=== PATIENT | female | born 1945 | race Caucasian/White ===

== ENCOUNTER 2020-04-09 07:21 | Outpatient (CLI) | payer MEDICARE, SELFPAY ==
--- NOTE | ~2020-04-09 | XR_ITS ---
EXAMINATION: XR UGI w small bowel DATE: 04/09/2020 09:16 INDICATION: Epigastric abdominal pain. TECHNIQUE: The patient drank thick barium, gas-producing crystals, and thin barium. Fluoroscopy of th e esophagus, stomach, and small bowel was performed. Fluoroscopy exposure time was 1.1 minutes. Radio graphs of the abdomen were obtained. The total number of images was 264. COMPARISON: CT abdomen and pelvis 05/05/2019 FINDINGS: UPPER GASTROINTESTINAL SERIES: There is no mass or stricture of the esophagus. Esophageal motility is normal. There is no hiatal her katie. There was no gastroesophageal reflux with provocative maneuvers. The stomach shows a normal fold ing pattern. Surgical clips in the right upper quadrant are likely from cholecystectomy. SMALL BOWEL SERIES: The small bowel shows a normal folding pattern. Specifically, the terminal ileum is normal. Transit t nikolai to the colon was 30 minutes. IMPRESSION: 1. Normal upper gastrointestinal series. 2. Normal small bowel series. Reviewed, dictated and finalized at location A.
== END 2020-04-09 07:22 | disposition home or self-care (01) ==
PROVIDERS: PCP Internal Medicine; Visit Provider Surgery
DX: R10.13 Epigastric pain (principal)
CPT/HCPCS: 74240; 74248

== ENCOUNTER 2020-04-13 00:45 | Outpatient (CLI) | payer MEDICARE, SELFPAY ==
[2020-04-13 17:53] LABS: SARS-CoV-2 RNA PCR Negative
== END 2020-04-13 00:46 | disposition home or self-care (01) ==
LOC: ANHCOVIDDT 00:45
PROVIDERS: PCP Internal Medicine; Visit Provider Surgery
DX: Z20.828 Contact with and (suspected) exposure to other viral communicable diseases (principal); Z01.812 Encounter for preprocedural laboratory examination
CPT/HCPCS: 87635; C9803; U0003

== ENCOUNTER 2020-04-13 09:20 | Outpatient (CLI) | payer MEDICARE, SELFPAY ==
--- NOTE | ~2020-04-13 | XR_ITS ---
EXAMINATION: XR chest 2V DATE: 04/13/2020 10:13 INDICATION: Hypertension. Preop. TECHNIQUE: Frontal and lateral views of the chest were obtained. COMPARISON: CT abdomen and pelvis 05/05/2019 FINDINGS: There is mild scarring at left lung apex. No pleural effusion or pneumothorax. The heart si ze is normal. There are changes of left mastectomy. Surgical clips in the right upper quadrant are julisa cordoba from cholecystectomy. IMPRESSION: 1. Mild scarring at left lung apex. Reviewed, dictated and finalized at location A.
--- NOTE | 2020-04-13 09:25 | ECG_ITS ---
Measurements Intervals [place] [employer] Rate: 63 P: 54 TX: 182 QRS: -20 QRSD: 124 T: 96 QT: 428 QTc: 438 Interpretive Statements SINUS RHYTHM LEFT BUNDLE BRANCH BLOCK ABNORMAL ECG Electronically Signed On 04-13-2020 10:49:01 CDT by Simon Rain D.O.
[2020-04-13 10:20] LABS: Hematocrit 41.1 % (37.0-47.0); Hemoglobin 13.4 g/dL (12.0-15.0); Mean Corpuscular HGB Conc 32.6 g/dl (32-36); Mean Corpuscular Hemoglobin 29.5 pg (26-34); Mean Corpuscular Volume 90.3 fl (80-100); Mean Platelet Volume 9.5 fl (7.4-10.4); Platelet Count Result 218 k/mm3 (150-375); Red Blood Count 4.55 M/mm3 (4.2-5.4); Red Cell Distribution Width 13.5 % (11.5-14.5); White Blood Count 5.9 K/mm3 (4.5-10.0)
[2020-04-13 10:29] LABS: Alanine Aminotransferase 28 U/L (4-35); Albumin Level 4.6 g/dL (3.5-5.1); Alkaline Phosphatase 60 U/L (38-126); Aspartate Amino Transferase 30 U/L (14-36); Bilirubin,Total 0.7 mg/dL (0.2-1.3); Blood Urea Nitrogen 14 mg/dL (7-17); Carbon Dioxide 30 mmol/L (22-30); Chloride 104 mmol/L (98-107); Estimated Glomerular Filt Rate > 60; Glucose 105 mg/dL (65-105); Lipase 75 U/L (23-300); Potassium 4.9 mmol/L (3.4-5.0); Sodium 139 mmol/L (137-145)
== END 2020-04-13 09:21 | disposition home or self-care (01) ==
PROVIDERS: PCP Internal Medicine; Visit Provider Surgery
DX: K40.90 Unilateral inguinal hernia, without obstruction or gangrene, not specified as recurrent (principal); I44.7 Left bundle-branch block, unspecified
CPT/HCPCS: 36415; 71046; 80053; 83690; 85027; 87635; 93005; C9803; U0003

== ENCOUNTER 2020-04-16 02:15 | Day surgery (SDC) | payer MEDICARE, SELFPAY ==
[2020-04-09 10:10] VITALS: BMI 28.3
[2020-04-16] MEDS: LACTATED RINGERS 1,000 ML 30 ML IV CONT ×2 (08:20→12:59)
--- NOTE | 2020-04-16 08:26 | P.PNAN_ITS ---
Anes - Initial Pre Proc Eval Procedure: Operation Date: 04/16/20 10:00 Proposed Procedures p Open Right Inguinal Hernia Repair With Mesh - Swapnil De Oliveira MD Date/Time: 04/16/20 08:26 Surgeon: Swapnil De Oliveira MD Pre Op Diagnosis: Right Inguinal Hernia Reducible Patient Data Age: 74 Gender: F Height: 1.63 m Weight: 75.4 kg Allergies Allergy/AdvReac Type Severity Reaction Status Date / Time lisinopril Allergy Unknown Cough Verified 04/16/20 08:01 Home Medications Medication Instructions Recorded Confirmed Type aspirin 81 mg tablet,delayed 81 mg PO DAILY 03/14/20 04/16/20 History release carvedilol 3.125 mg tablet 3.125 mg PO Q12H 03/14/20 04/16/20 History losartan 25 mg tablet 25 mg PO DAILY 03/14/20 04/16/20 History atorvastatin 10 mg PO DAILY 04/09/20 04/16/20 History elderberry fruit and flower 1 cap PO DAILY 04/09/20 04/16/20 History inulin [Fiber Gummies] 2 g PO DAILY 04/09/20 04/16/20 History multivitamin 1 tablet PO DAILY 04/09/20 04/16/20 History ECG: Date of Service: 04/13/20 Procedure(s): CA 12 lead EKG Accession Number(s): [id number] cc: ~ Measurements Intervals [place] Rate: 63 P: 54 WA: 182 QRS: -20 QRSD: 124 T: 96 QT: 428 QTc: 438 Interpretive Statements SINUS RHYTHM LEFT BUNDLE BRANCH BLOCK ABNORMAL ECG Electronically Signed On 04-13-2020 10:49:01 CDT by Simon Rain D.O. Dictated By: Simon Rain DO 04/13/20 1021 Patient hx anesthesia problems: none Family hx anesthesia problems: none PMFSH Past Medical History Medical History (Updated 04/16/20 @ 08:28 by Nico Curtis MD) Breast cancer Cancer BREAST CA Dysarthria Heart murmur Hypercholesterolemia Hypertension Neoplasm of skin Peptic ulcer Sleep apnea Surgical History Surgical History History of colonoscopy 2006 History of laparoscopic cholecystectomy 2019 History of left mastectomy 2006 History of tubal ligation Social History Social History Smoking status: Former smoker Smoking end date: 10/26/00 Alcohol intake: current Anes - Eval Final PreProcedure Day of Procedure 04/16/20 08:26 Patient weight: overweight Heart: regular rate and rhythm Lungs: clear to auscultation and normal air movement Airway: Mallampati scale class II Neurological: alert and oriented Last oral intake: >/= 8 hours ASA classification: III Emergent: no Anesthetic plan: proceed Anesthesia type and monitoring: general LMA Informed Consent: The patient's anesthetic plan and its attendant risks and benefits were discussed with the patient/family/POA. Questions were solicited and answers provided to the satisfaction of the patient/family/POA.
--- NOTE | 2020-04-16 08:53 | WPDHPUPDATE1 ---
History and Physical Update Update Date/Time: 04/16/20 08:53 History and Physical has been reviewed, including an updated exam of the patient. There are NO changes in the patient's condition. Risks, benefits, and alternatives have been discussed and questions answered. Patient agrees to proceed with procedure.
[2020-04-16 08:59] VITALS: BP 113/56; PULSE 70; RESP 16; TEMP 36.9; O2SAT 97
[2020-04-16] MEDS: BUPIVACAINE/EPINEPHRINE 0.5% 30 ML VIAL INFILTRATE (09:57)
--- NOTE | 2020-04-16 11:43 | SUR.OPER ---
EBL:10cc
[2020-04-16 11:58] VITALS: BP 119/64; PULSE 71; RESP 16; O2SAT 96
[2020-04-16 12:25] VITALS: BP 133/59; PULSE 75; RESP 16; O2SAT 98
--- NOTE | 2020-04-16 12:27 | PM.PROC ---
Procedure Note - Detailed Date of procedure: 04/16/20 Pre-op diagnosis: Right Inguinal Hernia Reducible Right Inguinal hernia Post-op diagnosis: other (Indirect right inguinal hernia) Procedure performed: Open inguinal hernia repair with mesh Description of procedure: The patient was placed in the supine position on the operating room table. After induction of adequate GIVS anesthesia by [facility] Anesthesia staff, we carefully prepped the entire abdomen and upper perineum with chlorhexidine. Four towels were placed around the right lower quadrant. Following this, a time-out was performed with the surgical team and the patient's surgical procedure and site was confirmed. We then carefully outlined a curvilinear incision in the right groin area and a curvilinear incision was made after introducing a mixture of local anesthetic, using 0.5% Marcaine with epinephrine and 1% Xylocaine plain as both an ilioinguinal nerve block and at the incision site with a 25 gauge needle. Following this, I carefully made the incision, and carried it down through the subcutaneous tissue. Tiffanie's fascia was incised and then we identified the external oblique aponeurosis and the external ring. Following this, the same mixture of local anesthetic was infiltrated underneath the external oblique aponeurosis and this was split in the direction of it's fibers with a #15 blade initially and then using metzenbaum scissors. I then opened the external oblique through the external ring and incised this somewhat posteriorly and superiorly exposing the ilioinguinal nerve. This nerve was carefully preserved laterally and then I carefully and meticulously dissected out the cord structures at the level of the pubic tubercle. In this lady there was an indirect inguinal hernia sac and a lipoma of the cord along wiht the round ligament. I then surrounded these structures at the level of pubic tubercle and placed a Sushila drain around them. I then carefully dissected the hernia sac up and off of the cord tissues, and brought it up and out of the incision. We were able to keep the little nerve away from the structures as we worked placing it just outside the hemostat holding the lateral portion of the split external oblique aponeurosis. We carefully dissected the layers and cremasteric/round ligament tissues off the hernia sac and then eventually opened the hernia sac. Holding this up with 4 hemostats, I carefully dissected it off the Round ligament. Once the hernia sac was carefully dissected back to the level of the internal ring, a suture ligation pursestring suture of 2-0 silk was used to circumvent and close the base of the hernia sac. Following this, a 2 - 0 silk tie was placed just below this, tied tight, and then distally the hernia sac was amputated with Bovie cautery. It was then passed off the field for pathologic evaluation. round ligament was also divided at the level of the internal ring and passed off the field along with what appeared to be lipoma of the cord. Following this, we took care to recreate an appropriate Rt. inguinal canal. This was done by carefully dissecting from the internal ring down to the pubic bone, dissecting away any cremasteric tissue. A running suture of 0 Prolene was placed in the pubic tubercle and run up to the internal ring, approximating the Transversalis fascia to the ilioinguinal ligament. Once this was done, we then opened the rectangular piece of Prolene mesh and it was then cut into a 12 x 5 cm elliptical sheet and I then positioned it nicely over Hesselbach's triangle. As we repositioned this I noticed that there was going to be no good exit site for the ilioinguinal nerve. This was a very small nerve and I felt it would be better to have it cut, and have an area of numbness on the patient's inner thigh rather than to have it constantly irritated by mesh or a suture and cause a neuropathy. Therefore, right near the
[2020-04-16 12:55] VITALS: BP 139/68; PULSE 65; RESP 16
[2020-04-16 13:25] VITALS: BP 152/69; PULSE 67; RESP 16
[2020-04-16 13:55] VITALS: BP 124/65; PULSE 66; RESP 16
== END 2020-04-16 14:10 | disposition home or self-care (01) ==
PROVIDERS: PCP Internal Medicine; Visit Provider Surgery
PROC: (CPT 49505; principal; 2020-04-16 10:00)
DX: K40.90 Unilateral inguinal hernia, without obstruction or gangrene, not specified as recurrent (principal); I10 Essential (primary) hypertension; E78.00 Pure hypercholesterolemia, unspecified; G47.30 Sleep apnea, unspecified; E66.3 Overweight; Z68.28 Body mass index [BMI] 28.0-28.9, adult; Z87.11 Personal history of peptic ulcer disease; Z85.3 Personal history of malignant neoplasm of breast; Z90.12 Acquired absence of left breast and nipple; Z87.891 Personal history of nicotine dependence
CPT/HCPCS: 49505; 88304; A9270; C1781; J0131; J2250; J2405; J2704; J3010; J7120

== ENCOUNTER 2021-01-17 11:42 | Outpatient (CLI) | payer MEDICARE, SELFPAY ==
--- NOTE | ~2021-01-17 | CT_ITS ---
EXAMINATION: CT abdomen pelvis wo con EXAM DATE: 01/17/2021 14:34 INDICATION: Hematuria, abdominal pain RUQ pain with nausea and micro hematuria x1day. Left-sided thu st cancer. TECHNIQUE: Spiral CT of the abdomen and pelvis was performed without contrast. Axial, coronal and s agittal images were reviewed. The dose-length product (DLP) for this examination was 262.15 mGy-cm. The exposure was tailored according to patient size (auto mA exposure control), and iterative recons truction (ASIR) was used as additional dose reduction technique. Comparison is made to prior examinat ion from 05/05/2019. FINDINGS: The liver, spleen, adrenal glands and pancreas are unremarkable. There are cholecystectomy clips. There is no nephrolithiasis or hydronephrosis. The uterus is unremarkable. The bladder i s unremarkable. There is no retroperitoneal or pelvic lymphadenopathy. There is mild scattered art eriosclerotic disease. The appendix is normal. There is mild to moderate sigmoid colonic diverticulosis. There is no adjace nt inflammatory change to suggest diverticulitis. The stomach and small bowel are unremarkable. Ther e is expected amount of colonic stool. No free intraperitoneal gas. The heart is normal in size. Trace pericardial effusion. The lung bases are unremarkable. There are no osteoblastic or osteolyti c lesions identified. Note made of completely atrophic left-sided rectus abdominis muscle, could be from denervation. IMPRESSION: 1. Unremarkable genitourinary system. No acute findings. 2. Mild to moderate sigmoid diverticulosis. Reviewed, dictated and finalized at location A.
[2021-01-17 12:01] LABS: Basophils Absolute Auto 0.08 K/mm3 (0.00-0.10); Eosinophils Percent Auto 2.5 % (1.0-6.0); Hematocrit 41.5 % (35.0-42.0); Hemoglobin 13.6 g/dL (11.7-13.8); Immature Granulocyte Absolute 0.04 K/mm3 (0.00-0.00); Immature Granulocyte Percent A 0.5 % (0.0-0.0); Lymphocytes Percent Auto 28.9 % (18.0-42.0); Mean Corpuscular HGB Conc 32.8 g/dL (32.0-36.0); Mean Corpuscular Volume 88.5 fL (78.0-102.0); Mean Platelet Volume 9.3 fl (9.2-11.8); Monocytes Absolute Auto 0.64 K/mm3 (0.10-0.90); Neutrophils Absolute Auto 4.7 K/mm3 (1.7-7.2); Neutrophils Percent Auto 59.1 % (50.0-70.0); Platelet Count Result 248 K/mm3 (150-420); Red Blood Count 4.69 M/mm3 (4.20-5.40); Red Cell Distribution Width 12.8 % (11.6-14.4)
[2021-01-17 12:02] LABS: Add Urine Microscopic? YES; Appearance Urine Clear (Clear); Bilirubin Urine Negative (Negative); Blood Urine 1+ (Negative); Color Urine Yellow (Yellow); Glucose Urine UA Negative (Negative); Ketones Urine Negative (Negative); Leukocyte Esterase Ur Negative (Negative); Nitrate Urine Negative (Negative); Protein Urine Negative (Negative); Urobilinogen Urine 0.2 mg/dL (0.2-1.0)
[2021-01-17 12:07] LABS: Bacteria Urine Trace /hpf; RBC Urine 0-2 /hpf (0-2); Squamous Epithelial Cell Urine Few /hpf (Few); WBC Urine None seen /hpf (0-3)
[2021-01-17 12:17] LABS: Alanine Aminotransferase 37 U/L (14-59); Albumin Level 4.1 g/dL (3.4-5.0); Alkaline Phosphatase 58 U/L (46-116); Amylase 80 U/L (25-115); Anion Gap 10 mmol/L (8-16); Aspartate Amino Transferase 20 U/L (15-37); Bilirubin,Total 0.5 mg/dL (0.00-1.00); Blood Urea Nitrogen 16 mg/dL (7-18); Calcium 8.9 mg/dL (8.5-10.1); Carbon Dioxide 28 mmol/L (21-32); Chloride 101 mmol/L (98-108); Estimated Glomerular Filt Rate > 60; Glucose 97 mg/dL (70-99); Lipase 143 U/L (73-393); Osmolality Calculated 289 mOsm/kg (285-295); Potassium 4.5 mmol/L (3.5-5.1); Sodium 139 mmol/L (136-145); Total Protein 7.5 g/dL (6.4-8.2)
== END 2021-01-17 11:43 | disposition home or self-care (01) ==
LOC: CHSLAB 11:45
PROVIDERS: PCP Internal Medicine; Visit Provider Internal Medicine
DX: K57.30 Diverticulosis of large intestine without perforation or abscess without bleeding (principal)
CPT/HCPCS: 36415; 74176; 80053; 81001; 82150; 83690; 85025

== ENCOUNTER → 2021-03-30 01:21 | Outpatient (CLI) | payer MEDICARE, SELFPAY ==
[2021-03-30 19:37] LABS: SARS-CoV-2 RNA PCR Negative
== END ==
PROVIDERS: PCP Internal Medicine; Visit Provider Internal Medicine Gastroenterology
DX: Z01.812 Encounter for preprocedural laboratory examination (principal); Z20.822 Contact with and (suspected) exposure to COVID-19
CPT/HCPCS: C9803; U0003; U0005

== ENCOUNTER 2021-04-02 00:26 | Day surgery (SDC) | payer MEDICARE, SELFPAY ==
[2021-03-20 08:59] VITALS: BMI 29.5
[2021-04-02 08:00] VITALS: BP 138/74; PULSE 81; RESP 20; TEMP 36.1; O2SAT 99; BMI 28.8
[2021-04-02] MEDS: LACTATED RINGERS 1,000 ML 150 ML IV CONT (08:26)
--- NOTE | 2021-04-02 08:28 | WPDANESEPPF ---
Anes - Initial Pre Proc Eval Procedure: Operation Date: 04/02/21 09:00 Proposed Procedures p Colonoscopy - Asa Pennington MD Date/Time: 04/02/21 08:28 Surgeon: Asa Pennington MD Pre Op Diagnosis: change in bowel habits Patient Data Age: 75 Gender: F Height: 5 ft 4 in Weight: 76.3 kg Last Vital Signs Temp 96.9 F L 04/02/21 08:00 Pulse 81 04/02/21 08:00 Resp 20 04/02/21 08:00 BP 138/74 04/02/21 08:00 Pulse Ox 99 04/02/21 08:00 Allergies Allergy/AdvReac Type Severity Reaction Status Date / Time lisinopril Allergy Unknown Cough Verified 04/02/21 07:58 Home Medications Medication Instructions Recorded Confirmed Type aspirin 81 mg tablet,delayed 81 mg PO DAILY 03/14/20 04/02/21 History release carvedilol 3.125 mg tablet 3.125 mg PO Q12H 03/14/20 04/02/21 History losartan 25 mg tablet 25 mg PO DAILY 03/14/20 04/02/21 History Fiber Gummies 2 g PO DAILY 04/09/20 04/02/21 History atorvastatin 10 mg PO DAILY 04/09/20 04/02/21 History elderberry fruit and flower 1 cap PO DAILY 04/09/20 04/02/21 History multivitamin 1 tablet PO DAILY 04/09/20 04/02/21 History pantoprazole 40 mg tablet,delayed 40 mg PO QAM 03/04/21 04/02/21 History release psyllium seed (sugar) oral powder 1 tbsp PO ONCE 03/04/21 04/02/21 History sodium,potassium,mag sulfates 17.5 See Rx Instructions PO .COMPLEX 03/14/21 Rx gram-3.13 gram-1.6 gram oral soln #354 ml Patient hx anesthesia problems: none Family hx anesthesia problems: none PMFSH Past Medical History Medical History (Updated 03/05/21 @ 10:49 by Jacki Barajas) Breast cancer Cancer BREAST CA Dysarthria Heart murmur Hypercholesterolemia Hypertension Neoplasm of skin Peptic ulcer Sleep apnea Surgical History Surgical History History of colonoscopy 2007 History of inguinal hernia repair right inguinal hernia, open inguinal hernia repair with mesh 04/16/20 History of laparoscopic cholecystectomy 2019 History of left mastectomy 2006 History of tubal ligation 2006 Family History Family History Father Diabetes mellitus Mother Family history of polycystic kidney disease Sibling Family history of polycystic kidney disease Other Diabetes mellitus Social History Social History Smoking packs per day: 1 Smoking cigarettes per day: 20.0 Years smoked: 40 Smoking pack-years: 40.00 Smoking status: Former smoker Tobacco type: cigarettes Smoking end date: 10/26/00 Alcohol intake: current Drinks per week: 5 Alcohol use details: BEER/WINE Substance use: never Substance use type: does not use Living arrangements: with family Gender identity (if verbalized by the patient): Female Spiritual care concerns: No Anes - Eval Final PreProcedure Day of Procedure 04/02/21 08:28 Patient weight: overweight Heart: regular rate and rhythm Lungs: clear to auscultation Airway: Mallampati scale class II Neurological: alert and oriented Last oral intake: >/= 8 hours ASA classification: III Emergent: no Anesthetic plan: proceed Anesthesia type and monitoring: general GIVS and standard monitoring Informed Consent: The patient's anesthetic plan and its attendant risks and benefits were discussed with the patient/family/POA. Questions were solicited and answers provided to the satisfaction of the patient/family/POA.
--- NOTE | 2021-04-02 08:50 | WPDGICN ---
Assessment and Plan Assessment and plan (1) Encounter for diagnostic colonoscopy due to change in bowel habits: Code(s): R19.4 - Change in bowel habit Status: Acute Assessment and Plan: Patient has had recent alteration in her bowel habits with narrow ribbon like stools. She has associated abdominal pain. Agree with Metamucil. Because of this discomfort a colonoscopy will be performed to evaluate for abnormality. She does have a history of hernia repair. She is status post recent cholecystectomy. Further recommendations may be given after endoscopy. (2) Abnormal stools: Code(s): R19.5 - Other fecal abnormalities Status: Acute GI Consult Note Consult date/time: 04/02/21 08:50 HPI: Joanna Freitas is a 75 year old female Presents for colonoscopy. Patient has a history of GE reflux disease. Last colonoscopy was 2013 for screening was essentially unremarkable. Patient is status post cholecystectomy in 2019. In 2020 underwent hernia repair with mesh she currently is followed by Dr. De Oliveira. Has recently noticed a change in bowel habits with narrowed stools abdominal discomfort pain and cramping relieved with bowel movements. She is referred for colonoscopy because of alteration in bowel habits. She has had some improvement bowel habits on taking Metamucil daily. She denies any bleeding or weight loss. Her family history is noncontributory. She has been treated for acid reflux as well recently. Review of Systems Review of Systems: All systems reviewed & are unremarkable except as noted in HPI and below PMFSH Past Medical History Medical History (Updated 04/02/21 @ 08:53 by Asa Pennington MD) Breast cancer Cancer BREAST CA Dysarthria Heart murmur Hypercholesterolemia Hypertension Neoplasm of skin Peptic ulcer Sleep apnea Surgical History Surgical History History of colonoscopy 2007 History of inguinal hernia repair right inguinal hernia, open inguinal hernia repair with mesh 04/16/20 History of laparoscopic cholecystectomy 2019 History of left mastectomy 2006 History of tubal ligation 2006 Family History Family History Father Diabetes mellitus Mother Family history of polycystic kidney disease Sibling Family history of polycystic kidney disease Other Diabetes mellitus Social History Social History Smoking packs per day: 1 Smoking cigarettes per day: 20.0 Years smoked: 40 Smoking pack-years: 40.00 Smoking status: Former smoker Tobacco type: cigarettes Smoking end date: 10/26/00 Alcohol intake: current Drinks per week: 5 Alcohol use details: BEER/WINE Substance use: never Substance use type: does not use Living arrangements: with family Gender identity (if verbalized by the patient): Female Spiritual care concerns: No Meds Home Medications and Allergies Home Medications Medication Instructions Recorded Confirmed Type aspirin 81 mg tablet,delayed 81 mg PO DAILY 03/14/20 04/02/21 History release carvedilol 3.125 mg tablet 3.125 mg PO Q12H 03/14/20 04/02/21 History losartan 25 mg tablet 25 mg PO DAILY 03/14/20 04/02/21 History Fiber Gummies 2 g PO DAILY 04/09/20 04/02/21 History atorvastatin 10 mg PO DAILY 04/09/20 04/02/21 History elderberry fruit and flower 1 cap PO DAILY 04/09/20 04/02/21 History multivitamin 1 tablet PO DAILY 04/09/20 04/02/21 History pantoprazole 40 mg tablet,delayed 40 mg PO QAM 03/04/21 04/02/21 History release psyllium seed (sugar) oral powder 1 tbsp PO ONCE 03/04/21 04/02/21 History sodium,potassium,mag sulfates 17.5 See Rx Instructions PO .COMPLEX 03/14/21 Rx gram-3.13 gram-1.6 gram oral soln #354 ml Allergies Allergy/AdvReac Type Severity Reaction Status Date / Time lisinopril Allergy Unknown Cough Verif
[2021-04-02 09:25] VITALS: BP 110/50; PULSE 86; RESP 15; O2SAT 94
[2021-04-02 09:35] VITALS: BP 108/48; PULSE 78; RESP 22; O2SAT 97
[2021-04-02 09:45] VITALS: BP 128/70; PULSE 80; RESP 20; O2SAT 98
== END 2021-04-02 09:53 | disposition home or self-care (01) ==
PROVIDERS: PCP Internal Medicine; Visit Provider Internal Medicine Gastroenterology
PROC: 0DJD8ZZ Inspection of Lower Intestinal Tract, Via Natural or Artificial Opening Endoscopic (ICD-10-PCS; CPT 45378; principal; 2021-04-02 09:00)
DX: R19.4 Change in bowel habit (principal); R19.5 Other fecal abnormalities; K64.8 Other hemorrhoids; K57.30 Diverticulosis of large intestine without perforation or abscess without bleeding; Z85.3 Personal history of malignant neoplasm of breast; R47.1 Dysarthria and anarthria; R01.1 Cardiac murmur, unspecified; E78.01 Familial hypercholesterolemia; I10 Essential (primary) hypertension; Z86.03 Personal history of neoplasm of uncertain behavior; K27.9 Peptic ulcer, site unspecified, unspecified as acute or chronic, without hemorrhage or perforation; G47.30 Sleep apnea, unspecified; Z87.891 Personal history of nicotine dependence; Z79.82 Long term (current) use of aspirin
CPT/HCPCS: 45378; J2704; J7120

== ENCOUNTER 2021-06-25 12:05 | Outpatient (CLI) | payer MEDICARE, SELFPAY ==
[2021-06-25 13:26] LABS: SARS-CoV-2 RNA PCR Negative (Negative)
== END 2021-06-25 12:06 | disposition home or self-care (01) ==
LOC: CHSLAB 12:10
PROVIDERS: PCP Internal Medicine; Visit Provider Internal Medicine
DX: Z20.822 Contact with and (suspected) exposure to COVID-19 (principal)
CPT/HCPCS: C9803; U0003; U0005

== ENCOUNTER 2021-06-27 14:00 | Outpatient (CLI) | payer MEDICARE, SELFPAY ==
--- NOTE | ~2021-06-27 | CT_ITS ---
EXAMINATION: CT brain wo con DATE: 06/27/2021 14:22 INDICATION: Headache with vertigo TECHNIQUE: Computed tomography (CT) of the head was performed without intravenous contrast. Sagittal and coronal reconstructions were performed. The mA was adjusted according to patient size. Iterative reconstruction technique was employed. The dose-length product was 605.33 mGy-cm. COMPARISON: None FINDINGS: No acute intracranial hemorrhage, acute infarction or abnormal extra axial fluid collection.. There i s minimal scattered white matter hypoattenuation consistent with chronic small vessel ischemic diseas e. Ventricles are normal and symmetric. No mass/mass effect. Changes of bilateral intraocular lens r eplacement. The orbits, paranasal sinuses and mastoid air cells are normal. IMPRESSION: 1. No acute intracranial process. 2. Minimal scattered white matter hypoattenuation consistent with chronic small vessel ischemic disea se. Reviewed, dictated and finalized at location A. IMPRESSION: 1. No acute intracranial process. 2. Minimal scattered white matter hypoattenuation consistent with chronic small vessel ischemic disease.
== END 2021-06-27 14:01 | disposition home or self-care (01) ==
LOC: CHSIMG 14:02
PROVIDERS: PCP Internal Medicine; Visit Provider Internal Medicine
DX: R51.9 Headache, unspecified (principal); R42 Dizziness and giddiness
CPT/HCPCS: 70450

== ENCOUNTER 2021-06-28 14:36 | Outpatient (CLI) | payer MEDICARE, SELFPAY ==
[2021-06-28 14:48] LABS: Basophils Absolute Auto 0.07 K/mm3 (0.00-0.10); Basophils Percent Auto 0.8 % (0.0-1.0); Eosinophils Absolute Auto 0.13 K/mm3 (0.02-0.50); Eosinophils Percent Auto 1.5 % (1.0-6.0); Hematocrit 41.7 % (35.0-42.0); Hemoglobin 13.4 g/dL (11.7-13.8); Immature Granulocyte Absolute 0.04 K/mm3 (0.00-0.00); Immature Granulocyte Percent A 0.5 % (0.0-0.0); Lymphocytes Absolute Auto 2.44 K/mm3 (1.10-4.50); Lymphocytes Percent Auto 28.1 % (18.0-42.0); Mean Corpuscular HGB Conc 32.1 g/dL (32.0-36.0); Mean Corpuscular Volume 90.3 fL (78.0-102.0); Mean Platelet Volume 9.3 fl (9.2-11.8); Monocytes Absolute Auto 0.65 K/mm3 (0.10-0.90); Monocytes Percent Auto 7.5 % (2.0-11.0); Neutrophils Absolute Auto 5.4 K/mm3 (1.7-7.2); Neutrophils Percent Auto 61.6 % (50.0-70.0); Platelet Count Result 249 K/mm3 (150-420); Red Blood Count 4.62 M/mm3 (4.20-5.40); Red Cell Distribution Width 13.6 % (11.6-14.4); White Blood Count 8.7 K/mm3 (4.8-10.8)
[2021-06-28 15:02] LABS: Alanine Aminotransferase 39 U/L (14-59); Albumin Level 4.2 g/dL (3.4-5.0); Alkaline Phosphatase 55 U/L (46-116); Anion Gap 11 mmol/L (8-16); Aspartate Amino Transferase 15 U/L (15-37); Bilirubin,Total 0.3 mg/dL (0.00-1.00); Blood Urea Nitrogen 15 mg/dL (7-18); Calcium 8.7 mg/dL (8.5-10.1); Carbon Dioxide 27 mmol/L (21-32); Chloride 105 mmol/L (98-108); Estimated Glomerular Filt Rate > 60; Glucose 127 mg/dL (70-99); Osmolality Calculated 298 mOsm/kg (285-295); Potassium 3.9 mmol/L (3.5-5.1); Sodium 143 mmol/L (136-145); Total Protein 7.3 g/dL (6.4-8.2)
[2021-06-28 15:13] LABS: D Dimer 0.36 mg/L (0.19-0.50)
[2021-06-28 15:14] LABS: CRP < 0.2 mg/dL (0.0-0.9)
== END 2021-06-28 14:37 | disposition home or self-care (01) ==
LOC: CHSLAB 14:37
PROVIDERS: PCP Internal Medicine; Visit Provider Nurse Practitioner Family
DX: I34.0 Nonrheumatic mitral (valve) insufficiency (principal); I10 Essential (primary) hypertension
CPT/HCPCS: 36415; 80053; 85025; 85380; 86140

== ENCOUNTER 2021-10-28 09:07 | Outpatient (CLI) | payer MEDICARE, SELFPAY ==
[2021-10-28 11:48] LABS: Influenza A QL RT-PCR Negative (Negative); Influenza B QL RT-PCR Negative (Negative); SARS-CoV-2 RNA PCR Positive (Negative)
== END 2021-10-28 09:08 | disposition home or self-care (01) ==
LOC: CHSLAB 09:11
PROVIDERS: PCP Internal Medicine; Visit Provider Internal Medicine
DX: U07.1 COVID-19 (principal); J06.9 Acute upper respiratory infection, unspecified
CPT/HCPCS: 87502; C9803; U0003; U0005

== ENCOUNTER 2022-01-20 07:42 | Outpatient (RCR) | payer MEDICARE, SELFPAY ==
--- NOTE | 2022-01-20 08:08 | PTOPEVAL ---
Thank you for referring Joanna Freitas to [facility].? The patient is scheduled to be seen for therapy? ____x/week for ___ weeks. Please review, sign, date and return this plan of care TESSA. I agree with and certify that the following plan of care is medically necessary. 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 [place] Respiratory History Hx Sleep Apnea Yes: DOES NOT USE CPAP Gastrointestinal History Hx Cholecystectomy Yes: 2018 Hx Diverticulitis Yes Hx Diverticulosis Yes Hx Gastroesophageal Reflux Disease Yes Hx Hernia Yes: R INGUINAL HERNIA REPAIR 03/2020 Hx Irritable Bowel Yes: CONSTIPATION AND DIARRHEA Hx Ulcer Yes: PEPTIC ULCER Hx Other Gastrointestinal Disorders Yes: TRANSLAP FOR BREAST RECONSTRUCTION Genitourinary History Hx Genitourinary Disorders No Significant History Musculoskeletal History Hx Musculoskeletal Disorders No Significant History Hematological History Hx Hematological Disorders No Significant History Endocrine History Hx Endocrine Disorders No Significant History HEENT History Hx Cataracts Yes: BILATERAL SURGERY WITH LENS IMPLANTS Integumentary History Hx Excision Skin Lesion Yes: NON-MELANOMA Reproductive History Hx Post Menopausal Yes Hx Tubal Ligation Yes Psychosocial History Hx Psychiatric Disorders No Significant History Pain History History of Any Previous or Ongoing No Significant History Instance of Pain Anesthesia History Hx Anesthesia Reactions No Significant History Other History Hx Cancer Yes: BREAST CA-2006 Hx Chemotherapy Yes: 2006 Hx Radiation Therapy Yes: 2006 Evaluation Information Problem Diagnosis BPPV, other gait abnormality Onset 01/08/22 Additional Evaluation Detail DHI = 64% functionally declined Subjective Information
== END 2022-03-03 23:59 | disposition home or self-care (01) ==
LOC: CHSPT 07:42
PROVIDERS: Visit Provider Otolaryngology
DX: H91.10 Presbycusis, unspecified ear (principal); R26.89 Other abnormalities of gait and mobility
CPT/HCPCS: 97014; 97110; 97112; 97140; 97162; G0283

== ENCOUNTER 2022-03-05 08:05 | Outpatient (CLI) | payer MEDICARE, SELFPAY | END 2022-03-05 08:06 | disposition home or self-care (01) | LOC: CHSAUDIO 08:09 | PROVIDERS: PCP Internal Medicine; Visit Provider Otolaryngology | DX: H93.13 Tinnitus, bilateral (principal) | CPT/HCPCS: 92557; 92567 ==

== ENCOUNTER 2023-07-23 14:55 | Outpatient (CLI) | payer MEDICARE, SELFPAY ==
--- NOTE | ~2023-07-23 | XR_ITS ---
XR knee LT min 4V 07/23/2023 15:16 Indication: Left knee pain Procedure: 4 views left knee Comparison: 08/03/2017 Findings: There is mild tricompartment osteoarthritis of the left knee. No significant joint effusion . No foreign bodies. Impression: 1: Mild tricompartment osteoarthritis of the left knee. Reviewed, dictated and finalized at location L. Impression: 1: Mild tricompartment osteoarthritis of the left knee.
== END 2023-07-23 14:56 | disposition home or self-care (01) ==
LOC: CHSIMG 14:59
PROVIDERS: PCP Internal Medicine; Visit Provider Internal Medicine
DX: M17.12 Unilateral primary osteoarthritis, left knee (principal); M25.562 Pain in left knee
CPT/HCPCS: 73564

== ENCOUNTER 2023-07-25 10:30 | Outpatient (CLI) | payer MEDICARE, SELFPAY ==
--- NOTE | ~2023-07-25 | MR_ITS ---
EXAMINATION: MR knee LT wo con DATE: 07/25/2023 12:25 INDICATION: LEFT KNEE PAIN TECHNIQUE: Magnetic resonance imaging (MRI) of the left knee was performed without intravenous contra st. Sequences included axial PD-weighted FS FSE, coronal PD-weighted FSE and PD-weighted FS FSE, sagi ttal PD-weighted FSE, and sagittal T2-weighted FS FSE. COMPARISON: Left knee x-ray 07/15/2023 FINDINGS: Medial compartment: Degenerative signal change in the body of the medial meniscus. Apical blunting of the meniscal body. Moderate diffuse cartilage thinning. Mild osteophytosis. Lateral compartment: Degenerative signal change. Apical blunting of the meniscal body. Mild diffuse cartilage thinning. Mi ld osteophytosis. Patellofemoral compartment: Cartilage thinning over the median ridge and lateral facet. Partial thickness cartilage fissuring wit h cartilage fraying over the median ridge. Ligaments and tendons: The ACL, PCL, MCL, and LCL are intact. Remaining flexor and extensor tendons are intact. Fluid: Moderate volume joint fluid. Osseous/other: No suspicious focal or diffuse marrow signal. IMPRESSION: Apical tears of the body of the medial and lateral menisci. Tricompartment osteoarthritic arthritis. Moderate left knee joint effusion. Reviewed, dictated and finalized at location K.
== END 2023-07-25 10:31 | disposition home or self-care (01) ==
LOC: CHSIMG 10:31
PROVIDERS: PCP Internal Medicine; Visit Provider Internal Medicine
DX: M25.562 Pain in left knee (principal); S83.282A Other tear of lateral meniscus, current injury, left knee, initial encounter; S83.242A Other tear of medial meniscus, current injury, left knee, initial encounter; M17.12 Unilateral primary osteoarthritis, left knee; M25.462 Effusion, left knee
CPT/HCPCS: 73721

== ENCOUNTER 2024-07-19 09:12 | Outpatient (CLI) | payer MEDICARE, SELFPAY ==
--- NOTE | ~2024-07-19 | XR_ITS ---
XR knee LT min 4V Ordering provider: Dario Izaguirre MD History: . Left knee pain,MEDIAL AND INFERIOR . Comparison: July 23, 2023 FINDINGS: BONES: No acute fracture or dislocation. JOINT SPACES: Normal. SOFT TISSUES: Normal. IMPRESSION: No acute osseous abnormality left knee. Reviewed, dictated and finalized at location A.
== END 2024-07-19 09:13 | disposition home or self-care (01) ==
PROVIDERS: PCP Internal Medicine; Visit Provider Orthopaedic Surgery
DX: M25.562 Pain in left knee (principal)
CPT/HCPCS: 73564

== ENCOUNTER 2024-11-08 09:32 | Outpatient (CLI) | payer MEDICARE, SELFPAY ==
--- NOTE | ~2024-11-08 | XR_ITS ---
XR knee LT min 4V Ordering provider: Dario Izaguirre MD History: . LT knee pain . Comparison: None. FINDINGS: BONES: No acute fracture or dislocation. JOINT SPACES: Normal. SOFT TISSUES: Normal. IMPRESSION: No acute osseous abnormality left knee. Reviewed, dictated and finalized at location A. [employer]
== END 2024-11-08 09:33 | disposition home or self-care (01) ==
PROVIDERS: PCP Internal Medicine; Visit Provider Orthopaedic Surgery
DX: M25.562 Pain in left knee (principal)
CPT/HCPCS: 73564

== ENCOUNTER 2024-12-09 02:17 | Day surgery (SDC) | payer MEDICARE, SELFPAY ==
--- NOTE | 2024-12-02 08:51 | PC.NURSE ---
Report to the Outpatient Waiting Room, entrance under the green pavilion located off [facility], at time _6:30 AM on date _12/09/24 . Planned Procedure Time: _8:30 AM .? Time changes happen often and if your time is changed the preop area will call you the afternoon before. - You and your visitor will be asked to self-screen and do not enter if you have any COVID symptoms. Please call surgeon if you need to reschedule. - A mask is optional within the hospital at this time. Patients may have clear liquids (water, carbonated beverages, clear teas, apple juice) until 3 hours prior to surgery( 5:30 AM) with a maximum of 20 ounces. - No food from midnight until time of surgery and no smoking, or chewing tobacco (or any form of nicotine). No chewing gum, candy or mints. Take only the following medications with a SIP of water on the morning of surgery: __METOPROLOL DO NOT STOP ANY OF YOUR OTHER PRESCRIPTION MEDICATIONS PRIOR TO SURGERY EXCEPT THE FOLLOWING Hold all vitamins and supplements for 3 days per anesthesiologist. Medications to discontinue per physician _PT STATES HOLD__ASPIRIN PER DR MCKINLEY___7 DAYS PRE OP LAST DOSE 12/01/24 Please no make-up, nail danish, hairspray, perfume, deodorant, or body powder the day of surgery.? No jewelry (including any body piercings) or valuables the day of surgery, leave them at home.? Please take a shower or bath the night before, or the morning of, surgery with an antibacterial soap.? Wear comfortable, loose fitting clothing.? Children are encouraged to wear pajamas. - Jewelry must be removed prior to entering the operating room.? Rings and piercings that are not removed may be cut off. - The hospital will not accept responsibility for valuables.? - Please leave all valuables, including medications, at home the day of surgery. If you are going home after surgery, a licensed bicycle taxi driver must drive you home.? - NO public transportation without another adult if you receive anesthesia. - We recommend that an adult stay with you for 24 hours following discharge. - We also recommend that you do not drive, make important decision, drink alcoholic beverages, or take any drugs that were not prescribed by your health care provider for at least 24 hours after your discharge time. Follow any additional instructions given to you from your surgeon. Telephone instructions given to _PATIENT and asked if any additional questions and then verbalized understanding. Patient advised to call surgeon office or pre surgery nurse liaison [phone] if any additional questions.
[2024-12-02 09:23] VITALS: BMI 31.0
[2024-12-09] VITALS (12 sets, daily range): BP systolic 110–129; BP diastolic 43–89; PULSE 72–89; RESP 10–20; TEMP 36.5–36.9; O2SAT 94–100
--- OUTSIDE RECORDS SUMMARY | 2024-12-09 02:22 | XMS_ITS | Patient Health Summary ---
Author Organization [facility] Address [address] [place] [address] Care Team Providers Care Yard Switcher Name Role Phone Von Silverio MD Primary Care Provider [phone] Note from [facility],non-owned Affiliates and Associated Physician Practices is amultiple site organization consisting of ambulatory clinics and hospital sitesin [place] and [place]. This disclosure is being madepursuant to the Care Everywhere program and may not contain all information available regarding this patient. Last updated 18.[facility] Social History Tobacco Use Types Packs/Day Years Used Date Smoking Tobacco: Former Smokeless Tobacco: Never Alcohol Use Standard Drinks/Week Comments Yes 0 (1 standard drink = 0.6 oz pur e alcohol) Sex and Gender Information Value Date Recorded Sex Assigned at Not on file Gender Identity Not on file Sexual Orientation Not on file Last Filed Vital Signs Vital Sign Reading Time Taken Comments Blood Pressure 139/75 12/12/2015 12:57 PM COLD PRESS OPERATOR Pulse 90 12/12/2015 12:57 PM COLD PRESS OPERATOR Temperature 36.3 C (97.4 F) 12/12/2015 12:57 PM COLD PRESS OPERATOR Respiratory Rate - - Oxygen Saturation 98% 12/12/2015 12: 57 PM COLD PRESS OPERATOR Inhaled Oxygen Concentration - - Weight 71.1 kg (156 lb 12.8 oz) 016 12:57 PM COLD PRESS OPERATOR Height 162.6 cm (5' 4 ) 12/12/2015 12:5 7 PM COLD PRESS OPERATOR Body Mass Index 26.91 12/12/2015 12:57 PM COLD PRESS OPERATOR Procedures * CT KIDNEYS WWO CONTRAST(Performed 12/12/2015) * URINALYSIS AUTO - POINT OF CARE (AMB) [facility](Performed 12/12/2015) * CREATININE BLOOD - POCT (IP) [facility](Performed 12/12/2015) * CYTOLOGY NON-MACHINIST HELPER MARINE PANEL ([facility])(Performed 11/12/2015) * CYTOLOGY NON-MACHINIST HELPER MARINE PANEL ([facility])(Performed 11/12/2015) * CYTOLOGY NON-MACHINIST HELPER MARINE PANEL ([facility])(Performed 11/12/2015) * URINALYSIS - POINT OF CARE (AMB) [facility](Performed 11/12/2015) Results * CT KIDNEYS WWO CONTRAST (12/12/2015 10:58 AM COLD PRESS OPERATOR) Anatomical Region Laterality Modality Other Impressions 12/14/2015 11:51 AM COLD PRESS OPERATOR IMPRESSION: 1. 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 2. No solid renal lesion. Report dictated by Ania Willis I, Dr. KATE REDMAN M.D. have personally reviewed and interpreted this examination/study. This report was electronically signed by KATE REDMAN M.D. on 12/14/2015 11:51 AM . Narrative 12/14/2015 11:51 AM COLD PRESS OPERATOR EXAMINATION: Computed tomography (CT) of the abdomen without and with contrast HISTORY: 70-year-old female with a right kidney cyst TECHNIQUE: CT of the abdomen was performed prior to and after the uneventful administration of 100 mL of Omnipaque 350 intravenous contrast according to a renal protocol. COMPARISON: Comparison is made with an outside institution CT study of the abdomen and pelvis dated 10/04/2015. FINDINGS: The visualized lung bases are clear. The heart size is normal without pericardial effusion. Postoperative changes of left mastectomy are partially imaged. The liver enhances homogenously. No focal intrahepatic lesions are seen. The gallbladder is normal without evidence of wall thickening, pericholecystic fluid, or gallstones. The intrahepatic and extrahepatic bile ducts are nondilated. The spleen enhances homogenously without focal lesions. The pancreas and adrenal glands are normal. There is a a hypoattenuating lesion in the inferior pole of the right kidney measuring 9 mm AP by 7 mm TV by 7 mm CC (image 63, series 7 and image 57, series 10). 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 Several additional punctate hypoattenuating foci in the bilateral kidneys are too small characterize characterize, but likely represent cysts. The kidneys otherwise enhance symmetrically. No renal or proximal ureteral calculi are seen. There is no evidence of hydronephrosis. The esophagus and stomach appear normal. The visualized portions of the small bowel and large bowel are normal in caliber without evidence of wall thickening or obstruction. No free air or free fluid is identified within the abdomen. There is no abdominal lymphadenopathy. The enhanced abdominal aorta is normal in course and caliber. The remaining enhanced vascular structures are normal. Single and patent renal arteries are identified bilaterally. Single patent renal veins are noted bilaterally. Bone windows demonstrate no suspicious lytic or blastic lesions. The visible osseous structures are intact. Procedure Note Kate Redman MD - 01/23/2018 EXAMINATION: Computed tomography (CT) of the abdomen without and withcontrast HISTORY: 70-year-old female with a right kidney cyst TECHNIQUE: CT of the abdomen was performed prior to and after theuneventful administration of 100 mL of Omnipaque 350 intravenous contrastaccording to a renal protocol. COMPARISON: Comparison is made with an outside institution CT study of theabdomen and pelvis dated 10/04/2015. FINDINGS: The visualized lung bases are clear. The heart size is normal withoutpericardial effusion. Postoperative changes of left mastectomy arepartially imaged. The liver enhances homogenously. No focal intrahepatic lesions are seen.The gallbladder is normal without evidence of wall thickening,pericholecystic fluid, or gallstones. The intrahepatic and extrahepaticbile ducts are nondilated. The spleen enhances homogenously without focal lesions. The pancreas and adrenal glands arenormal. There is a a hypoattenuating lesion in the inferior pole of the rightkidney measuring 9 mm AP by 7 mm TV by 7 mm CC (image 63, series 7 andimage 57, series 10). This lesion does not demonstrate definiteenhancement postcontrast administration and contains hyperattenuating foci in the posterior aspect of the noncontrastseries and is most consistent with a milk of calcium cyst or cyst withthin posterior wall calcification . Several additional punctatehypoattenuating foci in the bilateral kidneys are too small characterize characterize, but likely represent cysts. Thekidneys otherwise enhance symmetrically. No renal or proximal ureteralcalculi are seen. There is no evidence of hydronephrosis. The esophagus and stomach appear normal. The visualized portions of thesmall bowel and large bowel are normal in caliber without evidence of wallthickening or obstruction. No free air or free fluid is identified withinthe abdomen. There is no abdominal lymphadenopathy. The enhanced abdominal aorta is normal in course and caliber. Theremaining enhanced vascular structures are normal. Single and patent renalarteries are identified bilaterally. Single patent renal veins are notedbilaterally. Bone windows demonstrate no suspicious lytic or blastic lesions. Thevisible osseous structures are intact. IMPRESSION IMPRESSION: 1. A 9 mm hypoattenuating lesion in the inferior pole of the right kidneywithout definite enhancement and calcifications in the posterior aspect ismost consistent with a milk of calcium cyst or a cyst with linearposterior wall calcification. 2. No solid renal lesion. Report dictated by Dr. KATE Townsend M.D., M.D. have personally reviewed and interpreted thisexamination/study. This report was electronically signed by KATE REDMAN M.D. on 12/14/201511:51 AM . Nilton Melissa Smith MD CT ORDERABLES * URINALYSIS AUTO - POINT OF CARE (AMB) [facility] (12/12/2015) Glucose UA neg [facility] Bilirubin UA POCT neg [facility] Ketones UA POCT 0.5 mmo1/L [facility] Specific Emmett UA 1.005 [facility] Blood Urine POCT 10 Gaurav/uL [facility] pH UA 5.0 [facility] Protein UA 0.15 g/L [facility] Urobilinogen UA 3.5 umo1/L [facility] Nitrite UA neg [facility] WBC UA neg [facility] Urine specimen (specimen) 12/12/2015 Nilton A Smith MD LAB - POINT OF CARE ORDERABLES [facility] * CREATININE BLOOD - POCT (IP) [facility] (12/12/2015) Creatinine POCT 0.94 0.3 - 1.3 mg/dL [facility] eGFR POCT 60 60 ml/min [facility] 12/12/2015 Nilton Melissa Smith MD LAB - POINT OF CARE ORDERABLES [facility] * CYTOLOGY NON-MACHINIST HELPER MARINE PANEL ([facility]) (11/12/2015 11:21 AM COLD PRESS OPERATOR) Only the most recent of3 resultswithin the time period is included. Cytology Non-Air Launch Weapons Technician Reference: [id number] Specimen: URINE, CLEAN CATCH Clinical History: None Given Gross Description: 80ml clear fluid Preparation Method: 1 Thin Prep Pap stained slide SPECIMEN ADEQUACY: - SATISFACTORY FOR EVALUATION FINAL DIAGNOSIS: URINE, VOIDED, CLEAN CATCH - NO CYTOLOGIC ATYPIA MICROSCOPIC DESCRIPTION: Material reviewed: 1 ThinPrep pap stained slide Review of slide prepared reveals neutrophils, lymphocytes, benign squamous cells and urothelial cells. No atypical cells are seen. COMMENT(S): This case has been personally reviewed and interpreted by the attending (teaching) pathologist. Initial Evaluation performed by Yesy PENA(ASCP). Electronically signed 11/14/2015 Final Diagnosis performed by Oseas Stockton MD. Electronically signed 11/15/2015 [facility] ([facility]) 11/12/2015 11:2 1 AM COLD PRESS OPERATOR 11/13/2015 3:10 PM COLD PRESS OPERATOR Nilton Melissa Smith MD LAB - PATHOLOGY/CYT OLOGY ORDERABLES [facility] ([facility]) * (ABNORMAL) URINALYSIS - POINT OF CARE (AMB) [facility] (11/12/2015) Glucose UA neg [facility] Bilirubin UA POCT neg [facility] Ketones UA POCT neg [facility] Specific Emmett UA 1.030 [facility] Blood Urine POCT 25(A) [facility] pH UA 5.5 [facility] Protein UA neg [facility] Urobilinogen UA 3.5 [facility] Nitrite UA neg [facility] WBC UA neg [facility] Urine specimen (specimen) 11/12/2015 Nilton Melissa Smith MD LAB - POINT OF CARE ORDERABLES [facility] Care Teams Yard Switcher Relationship Specialty Start Date End Date Von Silverio MD [address] [place], [place] [id number] PCP - General 11/12/15
--- OUTSIDE RECORDS SUMMARY | 2024-12-09 02:22 | XMS_ITS | Encounter Summary ---
Author Organization [facility] Address [address] [place] [address] Phone Care Team Providers Care Digital Strategy Specialist Name Role Phone Von Silverio MD Primary Care Provider [phone] Fanny Santizo CYBER SECURITY MANAGER Unavailable [phone] Encounter Details Date Type Department Care Team (Latest Contact Info) Description 12/27/2021 Orders Only [facility] Scanning, Provider Social History Tobacco Use Types Packs/Day Years Used Date Smoking Tobacco: Former Smokeless Tobacco: Never Comments No Sex and Gender Information Value Date Recorded Sex Assigned at Not on file Legal Sex Female 7:12 AM MANUFACTURING LEAD Gender Identity Not on file Sexual Orientation Not on file Occupation Industry Job Start Date Job End Date Not on file Not on file Not on file Not on file documented as of this encounter Plan of Treatment Not on file documented as of this encounter Procedures Procedure Name Priority Date/Time Associated Diagnosis Comments SCAN - LABS 12/27/2021 documented in this encounter Results * SCAN - LABS (12/27/2021) us Provider Scanning Final Result documented in this encounter Visit Diagnoses Not on filedocumented in this encounter Care Teams Digital Strategy Specialist Relationship Specialty Start Date End Date Von Silverio MD PCP - General 08/10/17 Fanny Santizo, CYBER SECURITY MANAGER Nurse Practitioner Medical Oncology 11/29/20 documented as of this encounter
--- OUTSIDE RECORDS SUMMARY | 2024-12-09 02:22 | XMS_ITS | Clinical Summary ---
Author Organization [facility] Address [address] [place] [address] Care Team Providers Care Paragliding Instructor Name Role Phone Von Silverio MD Primary Care Provider [phone] Source Comments [facility],non-owned Affiliates and Associated Physician Practices is amultiple site organization consisting of ambulatory clinics and hospital sitesin [place], [place], [place] and [place]. This disclosure is being madepursuant to the Care Everywhere program and may not contain all information available regarding this patient. Last updated 18.[facility] [employer] Family History Medical History Relation Name Comments Kidney Disease Brother CVA Father Diabetes Father Heart Disease Father Hypertension Father CVA Mother Kidney Disease Mother Kidney Stones Mother Relation Name Status Comments Brother Father Mother Social History Tobacco Use Types Packs/Day Years [...] Comments Blood Pressure 139/75 12/12/2015 12:57 PM PERIODONTIST Pulse 90 12/12/2015 12:57 PM PERIODONTIST Temperature 36.3 C (97.4 F) 12/12/2015 12:57 PM PERIODONTIST Respiratory Rate - - Oxygen Saturation 98% 12/12/2015 12: 57 PM PERIODONTIST Inhaled Oxygen Concentration - - Weight 71.1 kg (156 lb 12.8 oz) 016 12:57 PM PERIODONTIST Height 162.6 cm (5' 4 ) 12/12/2015 12:5 7 PM PERIODONTIST Body Mass Index 26.91 12/12/2015 12:57 PM PERIODONTIST Plan of Treatment Health Maintenance Due Date Last Done Comments BONE DENSITY TESTING 1945 MEDICARE AWV 12 MONTHS 1945 HEPATITIS C SCREENING 06/30/1964 DTAP/TDAP/TD VACCINES (1 - Tdap) 1965 PNEUMOCOCCAL VACCINE 50+ (1 of 1 - PCV) 1996 ZOSTER VACCINE (1 of 2) 1996 Respiratory Syncytial Virus (RSV) Vaccine Pt: or over 60 yrs (1 - 1-dose 75+ series) 2021 COVID-19 VACCINE ( - 2023-2 5 season) 2024 INFLUENZA VACCINE (#1) 2024 DEPRESSION SCREENING 10/26/2024 HEPATITIS B VACCINE Aged Out No longe r eligible based on patient's age to complete this topic HIB VACCINE Aged Out No longer eligi ble based on patient's age to complete this topic HPV VACCINE Aged Out No longer eligi ble based on patient's age to complete this topic MENINGOCOCCAL (Group B) VACCINE Aged Out No longer eligible based on patient's age to complete this topic MENINGOCOCCAL VACCINE Aged Out No dania jani eligible based on patient's age to complete this topic Care Teams Paragliding Instructor Relationship Specialty Start Date End Date Von Silverio MD [address] [place] [id number] PCP - General 11/12/15
--- OUTSIDE RECORDS SUMMARY | 2024-12-09 02:22 | XMS_ITS | Encounter Summary ---
Author Organization [facility] Address [address] [place] [address] Phone Care Team Providers Care Tmd Teacher Assistant Name Role Phone Von Silverio MD Primary Care Provider [phone] Fanny Santizo ZIGZAGGER Unavailable [phone] Encounter Details Date Type Department Care Team (Latest Contact Info) Description 05/28/2023 Orders Only [facility] Scanning, Provider Social History Tobacco Use Types Packs/Day Years Used Date Smoking Tobacco: Former Smokeless Tobacco: Never Comments No Sex and Gender Information Value Date Recorded Sex Assigned at Not on file Legal Sex Female 7:12 AM AMORTIZATION SCHEDULE CLERK Gender Identity Not on file Sexual Orientation Not on file Occupation Industry Job Start Date Job End Date Not on file Not on file Not on file Not on file documented as of this encounter Plan of Treatment Not on file documented as of this encounter Procedures Procedure Name Priority Date/Time Associated Diagnosis Comments SCAN - LABS 05/28/2023 documented in this encounter Results * SCAN - LABS (05/28/2023) us Provider Scanning Final Result documented in this encounter Visit Diagnoses Not on filedocumented in this encounter Care Teams Tmd Teacher Assistant Relationship Specialty Start Date End Date Von Silverio MD PCP - General 08/10/17 Fanny Santizo, ZIGZAGGER Nurse Practitioner Medical Oncology 11/29/20 documented as of this encounter
--- OUTSIDE RECORDS SUMMARY | 2024-12-09 02:22 | XMS_ITS | Referral Summary ---
Author Organization [facility] Address [address] [place] [address] Care Team Providers Care Immunology Specialist Name Role Phone Von Silverio MD Primary Care Provider [phone] Source Comments [facility],non-[facility] Affiliates and Associated Physician Practices is amultiple site organization consisting of ambulatory clinics and hospital sitesin [place], [place], [place] and [place]. This disclosure is being madepursuant to the Care Everywhere program and may not contain all information available regarding this patient. Last updated 18.[facility] Social History Tobacco Use [...] Comments Blood Pressure 139/75 12/12/2015 12:57 PM DESIGN MANAGER Pulse 90 12/12/2015 12:57 PM DESIGN MANAGER Temperature 36.3 C (97.4 F) 12/12/2015 12:57 PM DESIGN MANAGER Respiratory Rate - - Oxygen Saturation 98% 12/12/2015 12: 57 PM DESIGN MANAGER Inhaled Oxygen Concentration - - Weight 71.1 kg (156 lb 12.8 oz) 016 12:57 PM DESIGN MANAGER Height 162.6 cm (5' 4 ) 12/12/2015 12:5 7 PM DESIGN MANAGER Body Mass Index 26.91 12/12/2015 12:57 PM DESIGN MANAGER Plan of Treatment Not on file Care Teams Immunology Specialist Relationship Specialty Start Date End Date Von Silverio MD [address] [place] [id number] PCP - General 11/12/15
--- OUTSIDE RECORDS SUMMARY | 2024-12-09 02:23 | XMS_ITS | Clinical Summary ---
Author Organization [facility] Address [address] [place] [address] Care Team Providers Care Cma Name Role Phone Unavailable Primary Care Provider Unavailabl e Social History Tobacco Use Types Packs/Day Years Used Date Smoking Tobacco: Never Assessed Comments Unknown Sex and Gender Information Value Date Recorded Sex Assigned at Not on file Legal Sex Female 8:48 AM CDT Gender Identity Not on file Sexual Orientation Not on file Plan of Treatment Health Maintenance Due Date Last Done Comments Hepatitis C 1964 DTaP, Tdap and Td Vaccines ( 1 - Tdap) 1965 Zoster Vaccines (1 of 2) 1996 Annual Medicare Wellness Visit 2011 Dexa Scan (General) 2011 Pneumococcal Vaccine: 65+ Ye ars (1 of 1 - PCV) 2011 RSV Immunization or 60+ Years (1 - 1-dose 75+ series) 2021 COVID-19 Vaccine ( - 2023-2 5 season) 2024 Influenza Adult (#1) 2024 Meningococcal B Vaccine Aged Out No l onger eligible based on patient's age to complete this topic Meningococcal Vaccine Aged Out No dania jani eligible based on patient's age to complete this topic RSV Immunizations Under 20 Months Aged Out No longer eligible based on patient's age to complete this topic Insurance [id number] MEDICARE
--- OUTSIDE RECORDS SUMMARY | 2024-12-09 02:23 | XMS_ITS | Encounter Summary ---
Author Organization [facility] Address [address] [place] [address] Phone Care Team Providers Care Psychologist Educational Name Role Phone Von Silverio MD Primary Care Provider [phone] Fanny Santizo NUCLEAR PLANT EQUIPMENT OPERATOR Unavailable [phone] Encounter Details Date Type Department Care Team (Latest Contact Info) Description 09/07/2020 Orders Only [facility] Scanning, Provider Social History Tobacco Use Types Packs/Day Years Used Date Smoking Tobacco: Former Smokeless Tobacco: Never Comments No Sex and Gender Information Value Date Recorded Sex Assigned at Not on file Legal Sex Female 7:12 AM 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 STEWARD Gender Identity Not on file Sexual Orientation Not on file Occupation Industry Job Start Date Job End Date Not on file Not on file Not on file Not on file documented as of this encounter Plan of Treatment Not on file documented as of this encounter Procedures Procedure Name Priority Date/Time Associated Diagnosis Comments SCAN - LABS 09/07/2020 documented in this encounter Results * SCAN - LABS (09/07/2020) us Provider Scanning Final Result documented in this encounter Visit Diagnoses Not on filedocumented in this encounter Care Teams Psychologist Educational Relationship Specialty Start Date End Date Von Silverio MD PCP - General 08/10/17 Fanny Santizo, NUCLEAR PLANT EQUIPMENT OPERATOR Nurse Practitioner Medical Oncology 11/29/20 documented as of this encounter
--- OUTSIDE RECORDS SUMMARY | 2024-12-09 02:23 | XMS_ITS | Encounter Summary ---
Author Organization [facility] Address [address] [place] [address] Phone Care Team Providers Care Continuous Miner Name Role Phone Von Silverio MD Primary Care Provider [phone] Fanny Santizo ADMITTING MANAGER Unavailable [phone] Encounter Details Date Type Department Care Team (Late st Contact Info) Description 03/25/2023 Telephone [facility] Cardiology [address] [facility] 8th [place] [address] [place] [address] Gordon Jj MD [address] [facility] [address] [place], [place] [id number] Social History Tobacco Use Types Packs/Day Years Used Date Smoking Tobacco: Former Smokeless Tobacco: Never Comments No Sex and Gender Information Value Date Recorded Sex Assigned at Not on file Legal Sex Female 7:12 AM ENGRAVER TIRE MOLD Gender Identity Not on file Sexual Orientation Not on file Occupation Industry Job Start Date Job End Date Not on file Not on file Not on file Not on file documented as of this encounter Plan of Treatment Not on file documented as of this encounter Visit Diagnoses Not on filedocumented in this encounter Care Teams Continuous Miner Relationship Specialty Start Date End Date Von Silverio MD PCP - General 08/10/17 Fanny Santizo NP Nurse Practitioner Medical Oncology 11/29/20 documented as of this encounter
--- OUTSIDE RECORDS SUMMARY | 2024-12-09 02:23 | XMS_ITS | Encounter Summary ---
Author Organization [facility] Address [address] [place] [address] Phone Care Team Providers Care Staff Analyst Name Role Phone Von Silverio MD Primary Care Provider [phone] Fanny Santizo RUBBER PRODUCTION MACHINE OPERATOR Unavailable [phone] Reason for Visit * Reason Onset Date Comments Medical Records Request 12/02/2024 Encounter Details Date Type Department Care Team (Late st Contact Info) Description 12/02/2024 Telephone [facility] Cardiology [address] [facility] 8th [place] [address] [place] [address] Gordon Jj MD [address] [facility] [address] [place], [place] [id number] Medical Records Request Social History Tobacco Use Types Packs/Day Years Used Date Smoking Tobacco: Former Passive Smoke Exposure: Past Smokeless Tobacco: Never Comments No Sex and Gender Information Value Date Recorded Sex Assigned at Not on file Legal Sex Female 7:12 AM COLORING ROOM MAN Gender Identity Not on file Sexual Orientation Not on file Occupation Industry Job Start Date Job End Date Not on file Not on file Not on file Not on file documented as of this encounter Miscellaneous Notes * Telephone Encounter - Eloisa Coon CMA - 12/02/2024 12:28 PM CST Faxed RING ROOM MAN * Telephone Encounter - Choct[place]Destinee baker - 12/02/2024 9:25 AM CST Parviz Casas with [facility] in [facility] req pt's most recent OV note and Stress test results RING ROOM MAN documented in this encounter Plan of Treatment Not on file documented as of this encounter Visit Diagnoses Not on filedocumented in this encounter Care Teams Staff Analyst Relationship Specialty Start Date End Date Von Silverio MD PCP - General 08/10/17 Fanny Santizo NP Nurse Practitioner Medical Oncology 11/29/20 documented as of this encounter
--- OUTSIDE RECORDS SUMMARY | 2024-12-09 02:23 | XMS_ITS | Clinical Summary ---
Author Organization [facility] Address [address] [place] [address] Care Team Providers Care Felt Washing Machine Tender Name Role Phone Von Silverio MD Primary Care Provider [phone] Fanny Santizo NP Unavailable [phone] Allergies No known active allergies Medications aspirin 81 mg tablet 1 tablet (81 mg total) Active dapagliflozin propanediol (FARXIGA) 10 mg tablet Take 1 tablet (10 mg total) by mouth daily 90 tablet [address] (PROTONIX) 40 mg EC tablet Take 1 tablet (40 mg total) by mouth daily 4 Active metoprolol XL (TOPROL-XL) 25 mg extended release tablet TAKE 1 TABLET (25 MG TOTAL) BY MOUTH DAILY. 90 tablet 3 4 03/15/20 25 Active sacubitriL-valsa rtan (ENTRESTO) 24-26 mg tabletIndication s:chronic heart failure Take 1 tablet by mouth 2 (two) times a day 180 tablet 3 4 Active sacubitriL-valsa rtan (ENTRESTO) 49-51 mg tabletIndication s:chronic heart failure Take 0.5 tablets by mouth 2 (two) times a day 14 tablet 4 Active dapagliflozin propanediol (FARXIGA) 10 mg tablet Use as directed 7 tablet 4 Active atorvastatin (LIPITOR) 10 mg tablet TAKE 1 TABLET BY MOUTH EVERY DAY 90 tablet 3 4 Active spironolactone (ALDACTONE) 25 mg tablet TAKE 1/2 TABLET BY MOUTH DAILY 45 tablet 3 4 Active Active Problems Problem Noted Date Diagnosed Date LBBB (left bundle branch block) 02/27/2024 Encounter for screening for malignant neoplasm o f breast 06/16/2019 Encounter for monitoring aromatase inhibitor the rapy 06/16/2019 At high risk for osteoporosis 06/16/2019 History of breast cancer 04/15/2018 Acquired absence of left breast 04/15/2018 Tricuspid valve insufficiency 08/10/2017 Carotid artery disease 11/23/2016 Diastolic heart failure 11/23/2016 Mitral valve disease 11/23/2016 Abnormal cardiovascular stress test 10/01/2016 Snoring 09/30/2016 Abnormal echocardiography 09/25/2016 Abnormal electrocardiography 09/25/2016 Primary malignant neoplasm o f central portion of female breast 04/10/2016 Encounters Date Type Department Care Team Description 12/02/[address] Advanced Medicine 8th [place] [address] [place] [address] Gordon Jj MD Medical Records Request 10/17/2024 Telephone [facility] Cardiology [address] [place] [address] 8th [place] [address] [place] [address] Gordon Jj MD AZ&ME PAP 10/14/[address] 8th [place] [address] [place] [address] Gordon Jj MD 10/04/2024 Telephone [facility] Cardiology [facility] [address] [place] [address] Gordon Jj MD from Last 3 Months Medical History Medical History Date Comments Diverticulitis of intestine without perforation or abscess without bleeding Diverticulitis - (Added by TW Conv) Family History Medical History Relation Name Comments Diabetes Father Family history of diabetes mellitus - (Added by TW Conv) Heart defect Father Heart problem - (Added by TW Conv) Relation Name Status Comments Brother 6 brothers Alive Father Social History Tobacco Use Types Packs/Day Years Used Date Smoking Tobacco: Former Passive Smoke Exposure: Past Smokeless Tobacco: Never Comments No Sex and Gender Information Value Date Recorded Sex Assigned at Not on file Legal Sex Female 7:12 AM TRADES HELPER Gender Identity Not on file Sexual Orientation Not on file Occupation Industry Job Start Date Job End Date Not on file Not on file Not on file Not on file Obstetrics History Last Filed Vital Signs Vital Sign Reading Time Taken Comments Blood Pressure 130/69 08/29/2024 10:52 AM TRADES HELPER Pulse 78 08/29/2024 10:52 AM TRADES HELPER Temperature 35.9 C (96.6 F) 08/29/2024 10:52 AM TRADES HELPER Respiratory Rate 16 11/30/2020 11:27 AM TRADES HELPER Oxygen Saturation 96% 08/29/2024 10:52 AM TRADES HELPER Inhaled Oxygen Concentration - - Weight 78.9 kg (174 lb) 08/29/2024 10:52 AM TRADES HELPER Height 157.5 cm (5' 2 ) 08/29/2024 10:52 AM TRADES HELPER Body Mass Index 31.83 08/29/2024 10:52 AM TRADES HELPER Plan of Treatment Health Maintenance Due Date Last Done Comments Depression Screening 1945 Fall Risk Assessment 1945 Hepatitis C Screening 1945 Osteoporosis Screening-Bone Density Scan 1945 Pneumococcal vaccine 65+ (1 of 2 - PCV) 1952 DTaP/Tdap/Td Vaccine (1 - Tdap) 1957 Hepatitis B Screening 1964 Zoster Vaccine (1 of 2) 1996 Well Visit 65+ 2011 Influenza Vaccine (#1) 2024 Breast Cancer Screening-Mammogram Discontinued 02/10/2024, 01/26/2023, 01/14/2022, Additional history exists Procedures Procedure Name Priority Date/Time Associated Diagnosis Comments SCREENING MAMMOGRAM RIGHT W WILLIAN UNILATERAL ONLY Schedule Routine, Read Routine (OP Routine) 02/10/2024 10:15 AM CDT Screening mammogram, encounter for from Last 3 Months or Most Recently Relevant to Health Maintenance Results * Screening Mammogram Right W Willian Unilateral Only (02/10/2024 10:15 AM CDT) Anatomical Region Laterality Modality Breast Right Mammography Narrative 02/11/2024 11:40 AM CDT Mammogram Technique: Right Breast Digital Breast Tomosynthesis, Unilateral C-view 2D Screening mammogram. Views obtained: right craniocaudal and right mediolateral oblique. Computer Aided Detection was performed. Mammogram Findings: The present examination has been compared to prior imaging studies performed at [facility] on 01/14/2022, 01/26/2023 and 02/05/2023. There are scattered areas of fibroglandular density. There is no suspicious abnormality in the right breast. Patient status post contralateral mastectomy for personal history of breast cancer. Impression: There is no mammographic evidence of malignancy. Annual screening mammography is recommended. OVERALL FINAL ASSESSMENT: BI-RADS CATEGORY 1: Negative. Procedure Note Snehal York MD - 02/11/2024 Mammogram Technique: Right Breast Digital Breast Tomosynthesis, Unilateral C-view 2DScreening mammogram. Views obtained: right craniocaudal and right mediolateral oblique. Computer Aided Detection was performed. Mammogram Findings: The present examination has been compared to prior imaging studies performed at [facility] on 01/14/2022, 01/26/2023 and 02/05/2023. There are scattered areas of fibroglandular density. There is no suspicious abnormality in the right breast. Patient status post contralateral mastectomy for personal history ofbreast cancer. Impression: There is no mammographic evidence of malignancy. Annual screening mammography is recommended. OVERALL FINAL ASSESSMENT: BI-RADS CATEGORY 1: Negative. us Self Screening Mammogram IMG MAMMO PROCEDURES Fi nal Result from Last 3 Months or Most Recently Relevant to Health Maintenance Insurance MEDICARE [employer] MEDICARE SUPPLEMENT MEDICARE [facility] Member Subscriber Plan / Payer (Ef fective 2019-Present) Name:Conejos, Joanna R Relation to Subscriber:Self Name:ConejosUmmsy R Payer ID:[id number] (NAIC) Type: [employer] Address: [address] MEDICARE [facility] MEDICARE [facility] Care Teams Felt Washing Machine Tender Relationship Specialty Start Date End Date Von Silverio MD PCP - General 08/10/17 Fanny Santizo NP Nurse Practitioner Medical Oncology 11/29/20
--- OUTSIDE RECORDS SUMMARY | 2024-12-09 02:23 | XMS_ITS | Referral Summary ---
Author Organization [facility] Address [address] [place] [address] Care Team Providers Care Cargo Checker Name Role Phone Von Silverio MD Primary Care Provider [phone] Fanny Santizo CHAIN MAKER MACHINE Unavailable [phone] Encounters Date Type Department Care Team Description 12/02/2024 Telephone [facility] Cardiology [facility] Advanced Medicine 8th [place] [address] [place] [address] Gordon Jj MD Medical Records Request 10/17/2024 Telephone [facility]iology [facility] 8th [place] [address] [place] [address] Gordon Jj MD AZ&ME PAP 10/14/2024 Telephone [facility] Cardiology [address] [place] [address] Advanced Medicine 8th [place] [address] [place] [address] Gordon Jj MD 10/04/2024 Telephone [facility] Cardiology [address] [facility] Medical Office Building [address] [place] [address] Gordon Jj MD from Last 3 Months Allergies No known active allergies Medications aspirin [...] f central portion of female breast 04/10/2016 Social History Tobacco Use Types Packs/Day Years Used Date Smoking Tobacco: Former Passive Smoke Exposure: Past Smokeless Tobacco: Never Comments No Sex and Gender Information Value Date Recorded Sex Assigned at Not on file Legal Sex Female 7:12 AM BELLY PACKER Gender Identity Not on file Sexual Orientation Not on file Occupation Industry Job Start Date Job End Date Not on file Not on file Not on file Not on file Last Filed Vital Signs Vital Sign Reading Time Taken Comments Blood Pressure 130/69 08/29/2024 10:52 AM BELLY PACKER Pulse 78 08/29/2024 10:52 AM BELLY PACKER Temperature 35.9 C (96.6 F) 08/29/2024 10:52 AM BELLY PACKER Respiratory Rate 16 11/30/2020 11:27 AM BELLY PACKER Oxygen Saturation 96% 08/29/2024 10:52 AM BELLY PACKER Inhaled Oxygen Concentration - - Weight 78.9 kg (174 lb) 08/29/2024 10:52 AM BELLY PACKER Height 157.5 cm (5' 2 ) 08/29/2024 10:52 AM BELLY PACKER Body Mass Index 31.83 08/29/2024 10:52 AM BELLY PACKER Plan of Treatment Not on file Procedures Procedure Name Priority Date/Time Associated Diagnosis [...] compared to prior imaging studies performed at [facility] on 01/14/2022, 01/26/2023 and 02/05/2023. [...] compared to prior imaging studies performed at [facility] on 01/14/2022, 01/26/2023 and 02/05/2023. [...] Recently Relevant to Health Maintenance Insurance MEDICARE [facility] MEDICARE SUPPLEMENT MEDICARE [facility] MEDICARE [facility] MEDICARE [facility] Care Teams Cargo Checker Relationship Specialty Start Date End Date Von Silverio MD PCP - General 08/10/17 Fanny Santizo NP Nurse Practitioner Medical Oncology 11/29/20
--- OUTSIDE RECORDS SUMMARY | 2024-12-09 02:23 | XMS_ITS | Encounter Summary ---
Author Organization [facility] Address [address] [place] [address] Phone Care Team Providers Care Leadership Development Manager Name Role Phone Von Silverio MD Primary Care Provider [phone] Fanny Santizo GEOMETRICIAN Unavailable [phone] Encounter Details Date Type Department Care Team (Latest Contact Info) Description 12/15/2018 Orders Only [facility] Scanning, Provider Social History Tobacco Use Types Packs/Day Years Used Date Smoking Tobacco: Former Smokeless Tobacco: Never Comments Unknown Sex and Gender Information Value Date Recorded Sex Assigned at Not on file Legal Sex Female 7:12 AM WATER RESOURCE ENGINEERING SPECIALIST Gender Identity Not on file Sexual Orientation Not on file documented as of this encounter Plan of Treatment Not on file documented as of this encounter Procedures Procedure Name Priority Date/Time Associated Diagnosis Comments SCAN - LABS 12/15/2018 documented in this encounter Results * SCAN - LABS (12/15/2018) us Provider Scanning Final Result documented in this encounter Visit Diagnoses Not on filedocumented in this encounter Care Teams Leadership Development Manager Relationship Specialty Start Date End Date Von Silverio MD PCP - General 08/10/17 Fanny Santizo, GEOMETRICIAN Nurse Practitioner Medical Oncology 11/29/20 documented as of this encounter
--- NOTE | 2024-12-09 06:44 | WPDANESEPPF ---
Anes - Initial Pre Proc Eval Procedure: Operation Date: 12/09/24 07:30 Proposed Procedures p Left Knee Arthroscopy - Dario Izaguirre MD Date/Time: 12/09/24 06:44 Surgeon: Dario Izaguirre MD Pre Op Diagnosis: Left Knee Medial Meniscal Tear Patient Data Age: 79 Gender: F Height: 1.6 m Weight: 79.4 kg Allergies Allergy/AdvReac Type Severity Reaction Status Date / Time lisinopril Allergy Unknown Cough Verified 12/02/24 08:52 Home Medications ?Medication ?Instructions ?Recorded ?Confirmed ?Type aspirin 81 mg tablet,delayed 81 mg PO DAILY 03/14/20 12/02/24 History release (Adult Aspirin Regimen) carvedilol 3.125 mg tablet 3.125 mg PO Q12H 03/14/20 12/02/24 History atorvastatin 10 mg tablet 10 mg PO DAILY 04/09/20 12/02/24 History elderberry fruit 460 mg-elderberry 1 cap PO DAILY 04/09/20 12/02/24 History flower 115 mg capsule inulin 2 gram chewable tablet 2 g PO DAILY 04/09/20 12/02/24 History (Fiber Gummies) multivitamin 1 tablet PO DAILY 04/09/20 12/02/24 History pantoprazole 40 mg tablet,delayed 40 mg PO QAM 03/04/21 12/02/24 History release psyllium seed (sugar) oral powder 1 tbsp PO ONCE 03/04/21 12/02/24 History (Metamucil (sugar) oral powder) dapagliflozin propanediol 10 mg 10 mg PO DAILY 11/08/24 12/02/24 History tablet (Farxiga) spironolactone 25 mg tablet 25 mg PO DAILY 11/08/24 12/02/24 History chlorhexidine gluconate 4 % 1 applic topical DAILY #237 mL 12/02/24 12/02/24 Rx topical liquid (Hibiclens) diphenhydramine 25 2 tablet PO HS PRN pain 12/02/24 12/02/24 History mg-acetaminophen 500 mg tablet (Acetaminophen PM) metoprolol succinate 25 mg 25 mg PO DAILY 12/02/24 12/02/24 History tablet,extended release 24 hr sacubitril 24 mg-valsartan 26 mg 1 tablet PO BID 12/02/24 12/02/24 History tablet (Entresto) Patient hx anesthesia problems: none Family hx anesthesia problems: none Results Review: All pre-operative results and documents have been reviewed as part of the pre-operative evaluation. [facility] Past Medical History Medical History Cancer BREAST CA Hypercholesterolemia Heart murmur Neoplasm of skin Peptic ulcer Dysarthria Sleep apnea Hypertension Breast cancer Surgical History Surgical History History of inguinal hernia repair right inguinal hernia, open inguinal hernia repair with mesh 04/16/20 History of left mastectomy 2006 History of tubal ligation 2005 History of laparoscopic cholecystectomy 2019 History of colonoscopy 2007 Family History Family History Father Diabetes mellitus Mother Family history of polycystic kidney disease Sibling Family history of polycystic kidney disease Other Diabetes mellitus Social History Social History Smoking packs per day: 1 Smoking cigarettes per day: 20.0 Years smoked: 35 Smoking pack-years: 35.00 Smoking status: Former smoker Tobacco type: cigarettes Smoking end date: 10/26/94 Alcohol intake: current Drinks per week: 3 Alcohol use details: BEER/WINE Substance use: never Substance use type: does not use Living arrangements: with family Occupation/Education: retired Gender identity (if verbalized by the patient): Female Spiritual care concerns: No Anes - Eval Final PreProcedure Day of Procedure 12/09/24 06:44 Patient weight: obese Heart: regular rate and rhythm Lungs: clear to auscultation Airway: Mallampati scale class II Neurological: alert and oriented Last oral intake: >/= 8 hours ASA classification: III Emergent: no Anesthetic plan: proceed Anesthesia type and monitoring: general LMA and standard monitoring Results Review: All pre-operative results and documents have been reviewed as part of the pre-operative evaluation. Informed Consent: The patient's anesthetic plan and its attendant risks and benefits were discussed with the patient/family/POA. Questions were solicited and answers provided to the satisfaction of the patient/family/POA.
[2024-12-09] MEDS: ACETAMINOPHEN 500 MG TABLET 1000 MG PO (06:55)
[2024-12-09] MEDS: CELECOXIB 200 MG CAPSULE PO (06:55)
[2024-12-09] MEDS: LACTATED RINGERS 1,000 ML 30 ML IV CONT ×2 (07:00→10:00)
--- NOTE | 2024-12-09 07:13 | WPDHPUPDATE1 ---
History and Physical Update Update Date/Time: 12/09/24 07:13 History and Physical has been reviewed, including an updated exam of the patient. There are NO changes in the patient's condition. Risks, benefits, and alternatives have been discussed and questions answered. Patient agrees to proceed with procedure.
--- NOTE | 2024-12-09 07:19 | PM.IMHP ---
H&P: HPI History of Present Illness Date/Time: 12/09/24 07:19 Chief Complaint: left knee pain Narrative: Pt presents for reevaluation of Left knee pain that has been present since a possible twisting injury after doing yard work, DOI 07/06/23 (~1 year). Pt reporting a constant ache w/ intermittent shooting pains down into the lower leg. She experiences swelling after prolonged activity. MRI completed 07/25/2023 reporting a medial meniscus tear and DJD. She received an intra-articular cortisone injection 08/04/23 and 01/19/24 w/ adequate relief. She then received a repeat injection 07/19/24 but denies relief. Pt would like to discuss further poc. Involved knee: left Onset: sudden Date of injury: 07/06/23 Character: stabbing, burning and dull ache Timing of pain: intermittent Exacerbated by: weight bearing, kneeling, squatting, stairs and prolonged activity Relieved by: Tylenol, ice, rest and NSAIDs Associated symptoms: Reports instability and stiffness History of occupational/recreational activity with repetitive motion: No History of prior knee injury: Yes Date: 07/06/23 [facility] Medical History Cancer BREAST CAHypercholesterolemia Heart murmur Neoplasm of skin Peptic ulcer Dysarthria Sleep apnea Hypertension Breast cancer Surgical History History of inguinal hernia repair right inguinal hernia, open inguinal hernia repair with mesh 04/16/20History of left mastectomy 2006History of tubal ligation 2006History of laparoscopic cholecystectomy 2019History of colonoscopy 2007 Family History Father Diabetes mellitusMother Family history of polycystic kidney diseaseSibling Family history of polycystic kidney diseaseOther Diabetes mellitus Social History Smoking packs per day: 1 Smoking cigarettes per day: 20.0 Years smoked: 40 Smoking pack-years: 40.00 Smoking status: Former smoker Tobacco type: cigarettes Smoking end date: 10/26/00 Alcohol intake: current Drinks per week: 5 Alcohol use details: BEER/WINE Substance use: never Substance use type: does not use Living arrangements: with family Occupation/Education: retired Gender identity (if verbalized by the patient): Female Spiritual care concerns: No Intake Vital Signs 11/08/2508:59 Height 1.6 m Height (Inches) 63 Weight 81.647 kg Weight (Lbs) 180 lbs., 0 oz. BMI 31.8 BP 130/80 Temp 36.8 C Visit Reasons: Knee pain (ortho) Legal Director Required: No Patient?s sex assigned at : Choose not to disclose Accompanied by: Self / Same As Patient Is patient in pain?: Yes Allergies/Adverse Reactions lisinopril Allergy (Unknown, Verified 11/08/24 10:00) Cough Do you need a note to return to daycare/school/sports/work: No Preferred pharmacy verified?: Yes Review of Systems Const All systems reviewed & are unremarkable except as noted in HPI and below Reports no additional complaints, Denies fatigue and Denies headache(s) Eyes Reports change in vision, Denies eye pain and Reports requires corrective lenses ENT Reports no additional complaints, Reports Normal hearing present, Denies vertigo and Denies headache(s) Card Reports no additional complaints, Denies chest pain and Denies dyspnea Resp Denies chest congestion and Denies dyspnea GI Reports no additional complaints, Denies abdominal pain, Denies constipation and Denies diarrhea Reports no additional complaints and Denies flank pain Musc Reports as per HPI, Reports arthralgias, Reports limited range of motion and Reports stiffness Skin/ Breast Reports system reviewed and no additional complaints, except as documented and Denies acne Neuro Reports no additional complaints, Reports Normal hearing present, Denies vertigo, Denies headache(s) and Denies memory loss Psych Denies memory loss Endo Reports no additional complaints and Denies fatigue Keny/ Lymph Reports no additional complaints and Denies easy bleeding Aller/ Immun Reports no additional complaints and Reports as per HPI Exam Exam Neuro Cranial Nerves: Yes Normal hearing present Extrem General: Yes capillary refill normal, No clubbing and No cyanosis Right Lower Extremity: normal to inspection, full ROM, normal capillary refill and knee Details: normal to inspection, normal ROM and knee ligament exam normal; Negative for tenderness, swelling, Juanjose's Test, abrasion, laceration, ecchymosis, crepitus, deformity or warmth; No cyanosis or edema Left Lower Extremity: normal to inspection, normal capillary refill, knee Details: abnormal to inspection Details: other ( effusion), tenderness Location: medial joint line, swelling, abnormal ROM Details: pain with active ROM during, pain with passive ROM during and range as follows (0 to 130), knee ligament exam normal, Juanjose's Test Details: positive medially and laterally, crepitus Location: patella and warmth; Negative for ecchymosis and foot Details: normal capillary refill, normal to inspection, vascular exam Details: dorsalis pedis pulse present and posterior tibial pulse present and motor-sensory exam light-touch normal; No full ROM, cyanosis, edema or no joint enlargement Assessment & Plan (1) Knee pain: Code(s): M25.569 - Pain in unspecified knee (2) Medial meniscus, posterior horn derangement: Code(s): M23.329 - Other meniscus derangements, posterior horn of medial meniscus, unspecified knee Category: Medical Qualifiers: Laterality: left Qualified Code(s): M23.322 - Other meniscus derangements, posterior horn of medial meniscus, left knee Plan: DANO IS HERE FOR F/U OF HER LEFT KNEE. SHE HAS RECURRENT PAIN AND SWELLING. SHE HAS MINIMAL IMPROVEMENT WITH NSAIDS. SHE HAS PAIN WITH ACTIVITY AND SHE ALSO HAS NIGHT PAIN. SHE DID NOT HAVE ANY RELIEF OF PAIN WITH HER LAST INJECTION. 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 HISTORY, EXAM AND RADIOGRAPHS REVIEWED WITH THE PATIENT. REFERRING PHYSICIAN RECORDS AND IMAGES REVIEWED. CONDITION, NATURE, ETIOLOGY AND COURSE OF NATURAL HISTORY REVIEWED. CONSERVATIVE AND OPERATIVE TREATMENT OPTIONS REVIEWED WELL THE RISKS AND BENEFITS OF EACH. RECOMMEND LEFT KNEE SCOPE. DISCUSSED NONOPERATIVE AND OPERATIVE TREATMENT OPTIONS WITH THE PATIENT. THE PATIENT'S QUESTIONS WERE ANSWERED. THE PATIENT DESIRES OPERATIVE TREATMENT. DISCUSSED ___LEFT KNEE SCOPE . RISKS OF SURGERY INCLUDING BUT NOT LIMITED TO NEUROVASCULAR DAMAGE, WOUND COMPLICATIONS, BLOOD CLOT, PULMONARY EMBOLUS, STROKE, CA, ANESTHETIC RISKS UP TO AND INCLUDING WERE REVIEWED. CONTINUED PAIN AND POSSIBLE DYSFUNCTION WERE EXPLAINED. NO GUARANTEES WERE OFFERED. THE PATIENT UNDERSTANDS AND WISHES TO PROCEED. Orders: Orders XR knee LT min 4V Today M25.562 - Pain in left knee Quality Smoking Status: Former smoker [facility] fall risk last assessed: 11/08/24 Questionnaire PHQ-2/PHQ-9 Reason depression screening was not done: screening not due Fall Risk Assessment Fall Risk (CDC) Provider Version 1a. Has the patient fallen in the last year?: no 1c. If the patient fell within the last year, was he or she injured?: no 2. Does the patient feel unsteady when standing or walking?: no 3. Does the patient worry about falling?: no 4. Is the Timed Up and Go Test result >= 12 seconds?: no CDC fall risk last assessed: 11/08/24 Risk assessment done this year?: Yes Please be advised this is a medical document. It is intended for [id number] communication. It is written in medical language and may contain unfamiliar abbreviations or verbiage. Medical documents are intended to carry relevant information, facts as evident, and the clinical opinion of the practitioner at the time of the encounter. This report may have been done utilizing a voice recognition system. Attempts have been made to correct errors. However, there may be uncorrected grammatical, spelling, and recognition errors present. The file time of this note does not necessarily represent the time the patient was seen. [facility] Past Medical History Medical History Cancer BREAST CA Hypercholesterolemia Heart murmur Neoplasm of skin Peptic ulcer Dysarthria Sleep apnea Hypertension Breast cancer Surgical History Surgical History History of inguinal hernia repair right inguinal hernia, open inguinal hernia repair with mesh 04/16/20 History of left mastectomy 2006 History of tubal ligation 2006 History of laparoscopic cholecystectomy 2019 History of colonoscopy 2007 Family History Family History Father Diabetes mellitus Mother Family history of polycystic kidney disease Sibling Family history of polycystic kidney disease Other Diabetes mellitus Social History Social History Smoking packs per day: 1 Smoking cigarettes per day: 20.0 Years smoked: 35 Smoking pack-years: 35.00 Smoking status: Former smoker Tobacco type: cigarettes Smoking end date: 10/26/94 Alcohol intake: current Drinks per week: 3 Alcohol use details: BEER/WINE Substance use: never Substance use type: does not use Living arrangements: with family Occupation/Education: retired Gender identity (if verbalized by the patient): Female Spiritual care concerns: No Meds Home Medications and Allergies Home Medications ?Medication ?Instructions ?Recorded ?Confirmed ?Type aspirin 81 mg tablet,delayed 81 mg PO DAILY 03/14/20 12/02/24 History release (Adult Aspirin Regimen) carvedilol 3.125 mg tablet 3.125 mg PO Q12H 03/14/20 12/02/24 History atorvastatin 10 mg tablet 10 mg PO DAILY 04/09/20 12/02/24 History elderberry fruit 460 mg-elderberry 1 cap PO DAILY 04/09/20 12/02/24 History flower 115 mg capsule inulin 2 gram chewable tablet 2 g PO DAILY 04/09/20 12/02/24 History (Fiber Gummies) multivitamin 1 tablet PO DAILY 04/09/20 12/02/24 History pantoprazole 40 mg tablet,delayed 40 mg PO QAM 03/04/21 12/02/24 History release psyllium seed (sugar) oral powder 1 tbsp PO ONCE 03/04/21 12/02/24 History (Metamucil (sugar) oral powder) dapagliflozin propanediol 10 mg 10 mg PO DAILY 11/08/24 12/02/24 History tablet (Farxiga) spironolactone 25 mg tablet 25 mg PO DAILY 11/08/24 12/02/24 History chlorhexidine gluconate 4 % 1 applic topical DAILY #237 mL 12/02/24 12/02/24 Rx topical liquid (Hibiclens) diphenhydramine 25 2 tablet PO HS PRN pain 12/02/24 12/02/24 History mg-acetaminophen 500 mg tablet (Acetaminophen PM) metoprolol succinate 25 mg 25 mg PO DAILY 12/02/24 12/02/24 History tablet,extended release 24 hr sacubitril 24 mg-valsartan 26 mg 1 tablet PO BID 12/02/24 12/02/24 History tablet (Entresto) Allergies Allergy/AdvReac Type Severity Reaction Status Date / Time lisinopril Allergy Unknown Cough Verified 12/02/24 08:52 Vital Signs Vital Signs - 24 hr 12/09/24 07:02 Temperature 36.5 C Pulse Rate 82 Respiratory Rate 16 Blood Pressure 128/61 Pulse Oximetry 99 Oxygen Delivery Room Air Exam Extrem: Left lower extremity: knee Details: tenderness, swelling, abnormal ROM Details: pain with active ROM and pain with passive ROM, knee ligament exam normal, Juanjose's Test Details: positive medially and laterally and Apley's Test Assessment and Plan Assessment and plan (1) Medial meniscus, posterior horn derangement: Qualifiers: Laterality: left Qualified Code(s): M23.322 - Other meniscus derangements, posterior horn of medial meniscus, left knee Code(s): M23.329 - Other meniscus derangements, posterior horn of medial meniscus, unspecified knee Status: Acute Plan left knee scope
[2024-12-09] MEDS: ceFAZolin 2 GM/D5W 50 ML 2 GM/50 ML BAG IVPB (08:02)
[2024-12-09] MEDS: BUPivacaine HCL 0.5% PF 30 ML VIAL INFILTRATE (08:05)
--- NOTE | 2024-12-09 09:09 | W.PM.PROC2 ---
Procedure Note - Detailed Date of Procedure 12/09/24 Pre-op Diagnosis Left Knee Medial Meniscal Tear Post-op Diagnosis Other (LEFT MEDIAL AND LATERAL MENISCUS TEAR) Procedure Performed LEFT KNEE SCOPE Surgeon Dario Izaguirre MD Anesthesia General Description of Procedure PATIENT WAS TAKEN TO THE OR. THE LEFT LEG WAS PREPPED AND DRAPED STERILE. TROCARS WERE PLACED IN THE USUAL FASHION. CAMERA WAS INTRODUCED. THERE WAS CHONDROMALACIA TO THE PATELLA FEMORAL JOINT. THERE WAS A LOT OF SYNOVITIS IN ALL COMPARTMENTS. THE MEDIAL COMPARTMENT SHOWED CHONDROMALACIA TO THE MEDIAL FEMORAL CONDYLE. A SHAVER WAS USED TO PREFORM A CHONDROPLASTY. THERE WAS A COMPLEX MEDIAL MENISCUS TEAR. THE TEAR WAS RESECTED WITH A BITER AND A SHAVER DOWN TO A SMOOTH BASE. THE ACL WAS DEGENERATIVE BUT INTACT WITH PARTIAL TEARS. THE LATERAL MENISCUS WAS TORN AT THE ANTERIOR HORN SECTION. THERE WAS SIGNIFICANT DEGENERATION TO THE MAJORITY OF THE ANTERIOR. THE TEAR WAS RESECTED TO A STABLE STRUCTURE. THE LATERAL COMPARTMENT HAD MINIMAL CHONDROMALACIA AT THE LATERAL PLATEAU. CHONDROPLASTY WAS PREFORMED. A SYNOVECTOMY WAS PREFORMED WELL. THE PATELLO FEMORAL JOINT UNDERWENT CHONDROPLASTY. THERE WAS GRADE 3 CHONDROMALACIA IN MOST OF THE TROCHLEA AND PART OF THE PATELLA. SYNOVECTOMY WAS PREFORMED IN THE SUPERIOR MEDIAL COMPARTMENT. THE WOUNDS WERE APPROXIMATED WITH 4.0 NYLON. STERILE DRESSING WAS APPLIED. PATIENT WAS EXTUBATED. Estimated Blood Loss 5 Complications No immediate complications Condition Stable Disposition PACU
[2024-12-09] MEDS: fentaNYL CITRATE INJ (*CRX) 100 MCG/2 ML VIAL 25 MCG IV PUSH ×8 (09:18→09:50)
[2024-12-09] MEDS: HYDROmorphone HCL INJ (*CRX) 1 MG/ML SYR IV PUSH (10:05)
--- NOTE | 2024-12-09 10:20 | SUR.PHASEI ---
Dr Izaguirre assessing patient at bedside, MD aware of 9/10 stabbing pain no relief with 200 of fentayl and 0.5 of dilaudid. MD orders 15 of toradol at this time.
[2024-12-09] MEDS: KETOROLAC 15 MG/ML VIAL (*BKC) IV PUSH (10:23)
[2024-12-09] MEDS: ONDANSETRON INJ 4 MG/2 ML VIAL IV PUSH (10:37)
--- NOTE | 2024-12-09 11:34 | SUR.PHASEII ---
MD Chavarria notified - Pt still nauseated after ordered Zofran - new order for RN to give 12.5mg Phenergan IVP once.
[2024-12-09] MEDS: PROMETHAZINE HCL 25 MG/ML AMPUL 12.5 MG IV PUSH (11:40)
== END 2024-12-09 12:35 | disposition home or self-care (01) ==
PROVIDERS: PCP Internal Medicine; Visit Provider Orthopaedic Surgery
PROC: (CPT 29870; principal; 2024-12-09 07:30)
DX: S83.232A Complex tear of medial meniscus, current injury, left knee, initial encounter (principal); S83.282A Other tear of lateral meniscus, current injury, left knee, initial encounter; M65.862 Other synovitis and tenosynovitis, left lower leg; M94.262 Chondromalacia, left knee; X50.0XXA Overexertion from strenuous movement or load, initial encounter; Z87.891 Personal history of nicotine dependence; E66.9 Obesity, unspecified; Z68.31 Body mass index [BMI] 31.0-31.9, adult
CPT/HCPCS: 29880; A9270; J0690; J1100; J1171; J1885; J2003; J2371; J2405; J2550; J2704; J3010; J7120

== ENCOUNTER 2024-12-26 08:09 | Outpatient (RCR) | payer MEDICARE, SELFPAY ==
--- NOTE | 2024-12-26 08:58 | PTOPEVAL1 ---
Assessment and note entered by Franike Vogel Evaluation Information Assessment Status Evaluation ICD-10 Condition Codes (PT) Pain in left knee M25.562 Other ICD-10 Condition Codes ( s/p left knee arthroscopy PT) Onset 12/09/24 Subjective Information Pt. reports that she underwent surgery on 12/09/24. she reports that her knee is doing slightly better since surgery, but is still limited due to pain. She describes pain at rest and with walking . She reports that she can stand for duration of about 45 minutes before having to sit down due to pain. She reports she enjoys yard work, but unable to do so due to pain and stiffness currently. She reports that her goal is to decrease her left knee pain and improve her knee mobility. Reported Pain Level Pain Score 6: Self Report Assessment PT Clinical Summary Pt. is a 79 year old female who enters the clinic due to developed left knee pain post knee arthroscopy. She presents with edema, knee pain, impaired gait, impaired l.e. strength and impaired left knee ROM. Continued skilled PT is indicated in order to improve these areas to allow the pt. to be able to normalize gait in order to return to outdoor activities. Plan of Care Interventions Electrical Stimulation,Gait Training,Hot Pack/Cold Pack,Manual Therapy,Neuro Re-education,Patient/ Caregiver Education,Therapeutic Activities, Therapeutic Exercise PT Services Indicated Yes Treatment Frequency and 2x/week x 10 visits Duration These treatments will address the objective and functional deficits as defined above. The patient will be advanced safely and appropriately in order for the patient to progress towards his/her prior level of function. Additional exercises will be introduced and as well as a comprehensive home exercise program upon discharge, if needed, ?to ensure carryover of functional gains achieved in the clinic. This treatment plan has been reviewed and agreement upon by the patient.
--- NOTE | 2025-01-25 09:14 | PTOPREEVAL ---
Assessment and note entered by JT File, PT Evaluation Information Assessment Status Re-evaluation ICD-10 Condition Codes (PT) Pain in left knee M25.562 Other ICD-10 Condition Codes ( s/p left knee arthroscopy PT) Onset 12/09/24 Subjective Information patient reports at rest she has pain in the L knee , and with walking it still shoots along the front and inside of the L knee. she reports it is much better since surgery. she reports she still has pain with yard work, especially having to get down in a squat or kneeling position. Reported Pain Level Pain Score 3: Self Report Assessment PT Clinical Summary mrs. hernandez presents to skilled PT services for her 10th skilled PT visit today, subjectively, she reports continued pain in the L knee at rest and with activity. however, she displays an improvement from 78.8% functionally declined to 43 .8% functionally declined per the LEFS today. she continues to display a slight hitch in her gait when weight bearing on the L LE with decreased terminal stance. she lacks achievement of ambulation goals, functional goals, and strength goals this date. continued skilled PT is indicated to improve her objective/functional deficits to achieve remaining goals and return to her prior level functional activity performance/quality of life. Plan of Care Interventions Electrical Stimulation,Gait Training,Hot Pack/Cold Pack,Manual Therapy,Neuro Re-education,Patient/ Caregiver Education,Therapeutic Activities, Therapeutic Exercise PT Services Indicated Yes Treatment Frequency and continue skilled PT 2x weekly for 6 more visits Duration These treatments will address the objective and functional deficits as defined above. The patient will be advanced safely and appropriately in order for the patient to progress towards his/her prior level of function. Additional exercises will be introduced and as well as a comprehensive home exercise program upon discharge, if needed, ?to ensure carryover of functional gains achieved in the clinic. This treatment plan has been reviewed and agreement upon by the patient.
--- NOTE | 2025-02-16 10:11 | OPREHPOC ---
Outpatient Therapy Plan of Care This is a Multidisciplinary Plan of Care that may contain components documented by all disciplines (PT, OT, and ST.) PT Problem 1 PT Problem #1 Knowledge Deficit PT Goal 1 Goal / Goal Update Pt. will be independent with a HEP addressing knee mobility and edema control. Target Visit 2 Progress Met PT Problem 2 PT Problem #2 Impaired Gait PT Goal 1 Goal / Goal Update Pt. will ambulate with equal right and left stance time (not met) Pt. will complete the 6 minute walk test over distance of 1200' indicating normal gait shalini and efficiency to return to outdoor work. not met (1100ft) Target Visit 16 Progress Not Met PT Problem 3 PT Problem #3 Impaired Range of Motion PT Goal 1 Goal / Goal Update Pt. will demonstrate 0-130 degrees left knee active ROM. Target Visit 10 Progress Not Met PT Problem 4 PT Problem #4 Impaired Strength PT Goal 1 Goal / Goal Update Pt. will demonstrate 5/5 knee extension, knee flexion and hip abduction strength on the left. Target Visit 16 Progress Not Met PT Problem 5 PT Problem #5 Impaired Functional Mobility PT Goal 1 Goal / Goal Update 1. ambulate up and down steps with reciprocal mechanics 2. LEFS to display less than 30% functional deficits Target Visit 16 Progress Not Met
--- NOTE | 2025-02-16 10:11 | PTOPPROG ---
Assessment and note entered by Vanessa Davenport, PT Evaluation Information Assessment Status Progress ICD-10 Condition Codes (PT) Pain in left knee M25.562 Other ICD-10 Condition Codes ( s/p left knee arthroscopy PT) Onset 12/09/24 Subjective Information Umm Freitas reports her left knee continues to have pain. She is noting increased pain today after mowing her lawn and going for a walk on 02/15. She reports overall her left knee is better since surgery but she still gets shooting pain that seems to be random and not provoked by certain movements or activities. She is able to walk approximately 2 blocks but still has pain. She plans to make a follow up with her surgeon but does not have anything scheduled. She does feel it is improving slowly but not where she wants to be. She is still taking steps one at a time. Assessment PT Clinical Summary Joanna Freitas has completed 16 skilled PT visits for left knee pain following an arthroscopic left knee surgery. She is reporting continued shooting pain in the left knee with random activities, difficulty walking long distances, difficulty performing yard work, and difficulty navigating stairs. She objectively demonstrates antalgic gait , decreased left knee AROM demonstrating 2-126 degrees today, decreased stair negotiation needing to take one step at a time with pain elicited in the left knee, and decreased left knee and bilateral hip strength. She has had improvements in left knee ROM, strength, and gait since initiating PT however, she has not met her goals except being independent in a home exercise program. She will be put on hold and is following up with her surgeon. Plan of Care Interventions Electrical Stimulation,Hot Pack/Cold Pack, Intermittent Compression Pump,Manual Therapy, Patient/Caregiver Education,Therapeutic Activities ,Therapeutic Exercise PT Services Indicated Yes Treatment Frequency and On hold, patient to make an appointment to follow Duration up with surgeon These treatments will address the objective and functional deficits as defined above. The patient will be advanced safely and appropriately in order for the patient to progress towards his/her prior level of function. Additional exercises will be introduced and as well as a comprehensive home exercise program upon discharge, if needed, ?to ensure carryover of functional gains achieved in the clinic. This treatment plan has been reviewed and agreement upon by the patient.
== END 2025-03-26 23:59 | disposition home or self-care (01) ==
LOC: CHSPT 08:09
PROVIDERS: Visit Provider Orthopaedic Surgery
DX: M17.12 Unilateral primary osteoarthritis, left knee (principal); M23.322 Other meniscus derangements, posterior horn of medial meniscus, left knee
CPT/HCPCS: 97014; 97016; 97110; 97140; 97161; 97530; 97750; G0283

== ENCOUNTER 2025-07-11 00:34 | Day surgery (SDC) | payer MEDICARE, SELFPAY ==
[2025-06-27 15:27] VITALS: BMI 31.6
--- OUTSIDE RECORDS SUMMARY | 2025-07-11 00:36 | XMS_ITS | Encounter Summary ---
Author Organization [facility] Address [address] [place] [address] Phone Care Team Providers Care Seat Coverer Name Role Phone Von Silverio MD Primary Care Provider [phone] aFnny Santizo TAILING HAND Unavailable [phone] Encounter Details Date Type Department Care Team (Latest Contact Info) Description 12/27/2021 Orders Only [facility] Scanning, Provider Social History Tobacco Use Types Packs/Day Years Used Date Smoking Tobacco: Former Smokeless Tobacco: Never Comments No Sex and Gender Information Value Date Recorded Sex Assigned at Not on file 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
--- OUTSIDE RECORDS SUMMARY | 2025-07-11 00:37 | XMS_ITS | Encounter Summary ---
Author Organization [facility] Address [address] [place] [address] Phone Care Team Providers Care Logistics Loss Prevention Manager Name Role Phone Von Silverio MD Primary Care Provider [phone] Fanny Santizo DETECTIVE AUTOMOBILE SECTION Unavailable [phone] Encounter Details Date Type Department Care Team (Latest Contact Info) Description 09/07/2020 Orders Only [facility] Scanning, Provider Social History Tobacco Use Types Packs/Day Years Used Date Smoking Tobacco: Former Smokeless Tobacco: Never Comments No Sex and Gender Information Value Date Recorded Sex Assigned at Not on file 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
--- OUTSIDE RECORDS SUMMARY | 2025-07-11 00:37 | XMS_ITS | Clinical Summary ---
Author Organization [facility] Address [address] [place] [address] Care Team Providers Care Professor Of Architecture Name Role Phone Von Sliverio MD Primary Care Provider [phone] Source Comments [facility],non-owned Affiliates and Associated Physician Practices is amultiple site organization consisting of ambulatory clinics and hospital sitesin [place], [place], [place]. This disclosure is being madepursuant to the Care Everywhere program and may not contain all information available regarding this patient. Last updated 18.[facility] [employer] Family History Medical History Relation Name Comments [...] drink = 0.6 oz pur e alcohol) Comments Unknown Sex and Gender Information Value Date Recorded Sex Assigned at Not on file Legal Sex Female 6:03 PM ASSEMBLER ERECTOR Gender Identity Not on file Sexual Orientation Not on file Last Filed Vital Signs Vital Sign Reading Time Taken Comments Blood Pressure 139/75 12/12/2015 12:57 PM ASSEMBLER ERECTOR Pulse 90 12/12/2015 12:57 PM ASSEMBLER ERECTOR Temperature 36.3 C (97.4 F) 12/12/2015 12:57 PM ASSEMBLER ERECTOR Respiratory Rate - - Oxygen Saturation 98% 12/12/2015 12: 57 PM ASSEMBLER ERECTOR Inhaled Oxygen Concentration - - Weight 71.1 kg (156 lb 12.8 oz) 016 12:57 PM ASSEMBLER ERECTOR Height 162.6 cm (5' 4) 12/12/2015 12:5 7 PM ASSEMBLER ERECTOR Body Mass Index 26.91 12/12/2015 12:57 PM ASSEMBLER ERECTOR Plan of Treatment Health Maintenance Due Date Last Done Comments BONE DENSITY TESTING 1945 HEPATITIS C SCREENING 06/30/1964 DTAP/TDAP/TD VACCINES (1 - Tdap) 1965 PNEUMOCOCCAL VACCINE 50+ (1 of 1 - PCV) 1996 ZOSTER VACCINE (1 of 2) 1996 Respiratory Syncytial Virus (RSV) Vaccine Pt: or over 60 yrs (1 - 1-dose 75+ series) 2021 DEPRESSION SCREENING 10/26/2024 COVID-19 VACCINE (1 - 2023-2 5 season) 2025 INFLUENZA VACCINE (#1) 2025 HEPATITIS B VACCINE Aged Out No longe r eligible based on patient's age to complete this topic HIB VACCINE Aged Out No longer eligi ble based on patient's age to complete this topic HPV VACCINE Aged Out No longer eligi ble based on patient's age to complete this topic MENINGOCOCCAL (Group B) VACC INE SHARED DECISION-MAKING Aged Out No longer eligibl e based on patient's age to complete this topic MENINGOCOCCAL GROUPS A/C/Y/W VACCINE Aged Out No longer eligible b ased on patient's age to complete this topic Insurance MEDICARE Care Teams Professor Of Architecture Relationship Specialty Start Date End Date Von Silverio MD [address] [place] [address] PCP - General 11/12/15
--- OUTSIDE RECORDS SUMMARY | 2025-07-11 00:37 | XMS_ITS | Clinical Summary ---
Author Organization [facility] Address [address] [place] [address] Care Team Providers Care Field Gauger Name Role Phone Unavailable Primary Care Provider [...] Td Vaccines ( 1 - Tdap) 1965 Pneumococcal Vaccine: 50+ Ye ars (1 of 1 - PCV) 1996 Zoster Vaccines (1 of 2) 1996 Annual Medicare Wellness Visit 2011 Dexa Scan (General) 2011 RSV Immunization or 60+ Years (1 - 1-dose 75+ series) 2021 COVID-19 Vaccine (1 - 2023-2 5 season) 2025 Meningococcal B Vaccine Aged Out No l onger eligible based on patient's age to complete this topic Meningococcal Vaccine Aged Out No dania jani eligible based on patient's age to complete this topic RSV Immunizations Under 20 Months Aged Out No longer eligible based on patient's age to complete this topic Insurance [facility] MEDICARE
--- OUTSIDE RECORDS SUMMARY | 2025-07-11 00:37 | XMS_ITS | Clinical Summary ---
Author Organization [facility] Address [address] [place] [address] Care Team Providers Care Vending Mechanic Name Role Phone Von Silverio MD Primary Care Provider [phone] Fanny Santizo PROCESS ENGINEERING INTERN Unavailable [phone] Allergies No known active allergies Medications aspirin 81 mg tablet 1 tablet (81 mg total) Active pantoprazole DR (PROTONIX) 40 mg EC tablet Take 1 tablet (40 mg total) by mouth daily 02/23/20 24 Active sacubitriL-vals brennan (ENTRESTO) 24-26 mg tabletIndicatio ns:chronic heart failure Take 1 tablet by mouth 2 (two) times a day 180 tablet 3 04/08/20 24 Active sacubitriL-vals brennan (ENTRESTO) 49-51 mg tabletIndicatio ns:chronic heart failure Take 0.5 tablets by mouth 2 (two) times a day 14 tablet 08/29/20 24 Active atorvastatin (LIPITOR) 10 mg tablet TAKE 1 TABLET BY MOUTH EVERY DAY 90 tablet 3 08/31/20 24 Active metoprolol XL (TOPROL-XL) 25 mg extended release tablet Take 1 tablet (25 mg total) by mouth daily 90 tablet 2 12/19/19 25 Active dapagliflozin propanediol (FARXIGA) 10 mg tablet Use as directed 90 tablet 3 04/18/20 25 Active spironolactone (ALDACTONE) 25 mg tablet TAKE 1/2 TABLET BY MOUTH DAILY 45 tablet 3 06/19/20 25 Active spironolactone (ALDACTONE) 25 mg tablet TAKE 1/2 TABLET BY MOUTH DAILY 45 tablet 3 08/31/20 24 025 Discontinued Active Problems Problem Noted Date Diagnosed Date LBBB (left bundle branch block) 02/27/2024 Encounter for screening for malignant neoplasm o f breast 06/16/2019 Encounter for monitoring aromatase inhibitor the amishy 06/16/2019 At high risk for osteoporosis 06/16/2019 [...] Encounters Date Type Department Care Team Description 07/03/2025 Telephone [facility] Cardiology [address] [facility] [facility] [address] [facility] [address] [place] [address] Nilda Bwoie 04/18/2025 Telephone [facility] Medicine Cardiology [address] [facility] [address] [place] [address] Gordon Jj MD from Last 3 Months Medical History Medical History Date Comments Diverticulitis of intestine without perforation or abscess without bleeding Diverticulitis - (Added by TW Conv) Family History Medical History Relation Name Comments Diabetes Father Family history of diabetes mellitus - (Added by TW Conv) Heart defect Father Heart problem - (Added by Conv) Relation Name Status Comments Brother 6 brothers Alive Father Social History Tobacco Use Types Packs/Day Years Used Date Smoking Tobacco: Former Passive Smoke Exposure: Past Smokeless Tobacco: Never Comments No Sex and Gender Information Value Date Recorded Sex Assigned at Not on file Legal Sex Female 7:12 AM PRESSURE SEALER AND TESTER Gender Identity Not on file Sexual Orientation Not on file Occupation Industry Job Start Date Job End Date Not on file Not on file Not on file Not on file Obstetrics History Last Filed Vital Signs Vital Sign Reading Time Taken Comments Blood Pressure 130/69 08/29/2024 10:52 AM PRESSURE SEALER AND TESTER Pulse 78 08/29/2024 10:52 AM PRESSURE SEALER AND TESTER Temperature 35.9 C (96.6 F) 08/29/2024 10:52 AM PRESSURE SEALER AND TESTER Respiratory Rate 16 11/30/2020 11:27 AM PRESSURE SEALER AND TESTER Oxygen Saturation 96% 08/29/2024 10:52 AM PRESSURE SEALER AND TESTER Inhaled Oxygen Concentration - - Weight 78.9 kg (174 lb) 08/29/2024 10:52 AM PRESSURE SEALER AND TESTER Height 157.5 cm (5' 2) 08/29/2024 10:52 AM PRESSURE SEALER AND TESTER Body Mass Index 31.83 08/29/2024 10:52 AM PRESSURE SEALER AND TESTER Plan of Treatment Health Maintenance Due Date Last Done Comments Depression Screening 1945 Fall Risk Assessment 1945 Hepatitis C Screening 1945 Osteoporosis Screening-Bone Density Scan 1945 DTaP/Tdap/Td Vaccine (1 - Tdap) 1957 Hepatitis B Screening 1964 Pneumococcal vaccine 65+ (1 of 2 - PCV) 1965 Zoster Vaccine (1 of 2) 1996 Well Visit 65+ 2011 Influenza Vaccine (#1) 2025 Breast Cancer Screening-Mammogram Discontinued 02/10/2024, 01/26/2023, 01/14/2022, Additional history exists Procedures Procedure Name Priority Date/Time Associated Diagnosis Comments SCREENING MAMMOGRAM RIGHT W TORREY UNILATERAL ONLY Schedule Routine, Read Routine (OP Routine) 02/10/2024 10:15 AM CDT Screening mammogram, encounter for from Last 3 Months or Most Recently Relevant to Health Maintenance Results * Screening Mammogram Right W Torrey Unilateral Only (02/10/2024 10:15 AM CDT) Anatomical Region Laterality Modality Breast Right Mammography Narrative 02/11/2024 11:40 AM CDT Mammogram Technique: Right Breast Digital Breast Tomosynthesis, Unilateral C-view 2D Screening mammogram. Views obtained: right craniocaudal and right mediolateral oblique. Computer Aided Detection was performed. Mammogram Findings: The present examination has been compared to prior imaging studies performed at [facility] on 01/14/2022, 01/26/2023 and 02/05/2023. There are [...] prior imaging studies performed at [facility] on 01/14/2022, 01/26/2023 and 02/05/2023. There are [...] Recently Relevant to Health Maintenance Insurance MEDICARE [facility] MEDICARE SUPPLEMENT MEDICARE [facility] Member Subscriber Plan / Payer ( fective 2019-Present) Name:Edith, Patsy R Relation to Subscriber:Self Name:Edith, Joanna R Payer ID:[id number] (NAIC) Type:[id number] Address: [address] MEDICARE [facility] MEDICARE [facility] [place] Care Teams Vending Mechanic Relationship Specialty Start Date End Date Von Silverio MD PCP - General 08/10/17 Fanny Santizo NP Nurse Practitioner Medical Oncology 11/29/20
--- OUTSIDE RECORDS SUMMARY | 2025-07-11 00:37 | XMS_ITS | Encounter Summary ---
Author Organization [facility] Address [address] [place] [address] Phone Care Team Providers Care Wind Turbine Sheet Metal Worker Name Role Phone Von Silverio MD Primary Care Provider [phone] Fanny Santizo THEATER SET PRODUCTION DESIGNER Unavailable [phone] Encounter Details Date Type Department Care Team (Latest Contact Info) Description 05/28/2023 Orders Only [facility] Scanning, Provider Social History Tobacco Use Types Packs/Day Years Used Date Smoking Tobacco: Former Smokeless Tobacco: Never Comments No Sex and Gender Information Value Date Recorded Sex Assigned at Not on file Legal Sex Female 7:12 AM COLOR WORKER Gender Identity Not on file Sexual Orientation [...] on filedocumented in this encounter Care Teams Wind Turbine Sheet Metal Worker Relationship Specialty Start Date End Date Von Silverio MD PCP - General 08/10/17 Fanny Santizo, THEATER SET PRODUCTION DESIGNER Nurse Practitioner Medical Oncology 11/29/20 documented as of this encounter
--- OUTSIDE RECORDS SUMMARY | 2025-07-11 00:37 | XMS_ITS | Encounter Summary ---
Author Organization [facility] Address [address] [place] [address] Phone Care Team Providers Care Health Information Technician Name Role Phone Von Silverio MD Primary Care Provider [phone] Fanny Santizo CUSTOMER SUPPLY CHAIN ANALYST Unavailable [phone] Encounter Details Date Type Department Care Team (Latest Contact Info) Description 12/15/2018 Orders Only [facility] Scanning, Provider Social History Tobacco Use Types Packs/Day Years Used Date Smoking Tobacco: Former Smokeless Tobacco: Never Comments Unknown Sex and Gender Information Value Date Recorded Sex Assigned at Not on file Legal Sex Female 7:12 AM ASPHALT PLANT WORKER Gender Identity Not on file Sexual [...] on filedocumented in this encounter Care Teams Health Information Technician Relationship Specialty Start Date End Date Von Silverio MD PCP - General 08/10/17 Fanny Santizo, CUSTOMER SUPPLY CHAIN ANALYST Nurse Practitioner Medical Oncology 11/29/20 documented as of this encounter
--- OUTSIDE RECORDS SUMMARY | 2025-07-11 00:37 | XMS_ITS | Encounter Summary ---
Author Organization [facility] Address [address] [place] [address] Phone Care Team Providers Care Drier Belt Conveyor Name Role Phone Von Silverio MD Primary Care Provider [phone] Fanny Santizo EGG SEPARATOR Unavailable [phone] Encounter Details Date Type Department Care Team (Late st Contact Info) Description 03/25/2023 Telephone [facility] Medicine Cardiology [address] [facility] Advanced Medicine 8th [place] [address] [place] [address] Gordon Jj MD [address] [facility] [address] [place], [place] [id number] Social History Tobacco Use Types Packs/Day Years Used Date Smoking Tobacco: Former Smokeless Tobacco: Never Comments No Sex and Gender Information Value Date Recorded Sex Assigned at Not on file Legal Sex Female 7:12 AM ACREAGE REPORTER Gender Identity Not on file Sexual Orientation Not on file Occupation Industry Job Start Date Job End Date Not on file Not on file Not on file Not on file documented as of this encounter Plan of Treatment Not on file documented as of this encounter Visit Diagnoses Not on filedocumented in this encounter Care Teams Drier Belt Conveyor Relationship Specialty Start Date End Date Von Silverio MD PCP - General 08/10/17 Fanny Santizo NP Nurse Practitioner Medical Oncology 11/29/20 documented as of this encounter
--- OUTSIDE RECORDS SUMMARY | 2025-07-11 00:37 | XMS_ITS | Patient Health Record ---
Author Organization [facility] Address [address] [place], [place] [address] Care Team Providers Care Retail Store Manager Name Role Phone CHERRIE ROBLEDO Unavailable [phone] Von Silverio Unavailable Unavailable Reason For Referral No Information Medications Medication SIG (Take, Route, Frequency, Duration) Notes Start Date End Date Status letrozole 2.5 MG Oral Tablet [Femara] ORAL letrozole 2.5 MG Oral Tablet [Femara]Original Medicationletrozole 2.5 MG Oral Tablet [Femara] *Reorder from [employer] for eRx and Interaction Alerts* 02/12/2016 Active Plan Of Treatment No Information Insurance Providers Payer Name Payer Address Payer Phone Subscriber Number Group Number Insured Name Patient Relationship to Insured Coverage Start Date Coverage End Date Medicare Part B [place] [address] [place] [address] [id number] DANO SHARMA Self - patient is the insured [facility] ([facility]) ATTN CLAIMS [address] [place] [address] [id number] DANO SHARMA Self - patient is the insured
[2025-07-11 10:32] VITALS: BP 143/78; PULSE 72; RESP 17; TEMP 36.4; O2SAT 97; BMI 30.7
[2025-07-11] MEDS: LACTATED RINGERS 1,000 ML 150 ML IV CONT (10:41)
--- NOTE | 2025-07-11 11:08 | WPDANESEPPF ---
Anes - Initial Pre Proc Eval Procedure: Operation Date: 07/11/25 11:30 Proposed Procedures p Screening Colonoscopy - Robert Ramos DO Date/Time: 07/11/25 11:08 Surgeon: Robert Ramos DO Pre Op Diagnosis: Screening for malignant neoplasm of colon Patient Data Age: 80 Gender: F Height: 1.6 m Weight: 78.6 kg Last Vital Signs Temp 97.6 F 07/11/25 10:32 Pulse 72 07/11/25 10:32 Resp 17 07/11/25 10:32 BP 143/78 H 07/11/25 10:32 Pulse Ox 97 07/11/25 10:32 O2 Del Method Room Air 07/11/25 10:32 Allergies Allergy/AdvReac Type Severity Reaction Status Date / Time lisinopril Allergy Unknown Cough Verified 07/11/25 10:30 Home Medications ?Medication ?Instructions ?Recorded ?Confirmed ?Type aspirin 81 mg tablet,delayed 81 mg PO DAILY 03/14/20 07/11/25 History release (Adult Aspirin Regimen) carvedilol 3.125 mg tablet 3.125 mg PO Q12H 03/14/20 05/23/25 History atorvastatin 10 mg tablet 10 mg PO DAILY 04/09/20 07/11/25 History dapagliflozin propanediol 10 mg 10 mg PO DAILY 11/08/24 07/11/25 History tablet (Farxiga) spironolactone 25 mg tablet 25 mg PO DAILY 11/08/24 07/11/25 History diphenhydramine 25 2 tablet PO HS PRN pain 12/02/24 06/27/25 History mg-acetaminophen 500 mg tablet (Acetaminophen PM) metoprolol succinate 25 mg 25 mg PO DAILY 12/02/24 07/11/25 History tablet,extended release 24 hr sacubitril 24 mg-valsartan 26 mg 1 tablet PO BID 12/02/24 07/11/25 History tablet (Entresto) hydrocodone 5 mg-acetaminophen 325 1 tablet PO Q12H PRN pain #20 tabs 12/21/24 06/27/25 Rx mg tablet Patient hx anesthesia problems: none Family hx anesthesia problems: none Results Review: All pre-operative results and documents have been reviewed as part of the pre-operative evaluation. [facility] Past Medical History Medical History Cancer BREAST CA Hypercholesterolemia Heart murmur Neoplasm of skin Peptic ulcer Dysarthria Sleep apnea Hypertension Breast cancer Surgical History Surgical History History of inguinal hernia repair right inguinal hernia, open inguinal hernia repair with mesh 04/16/20 History of left mastectomy 2006 History of tubal ligation 2006 History of laparoscopic cholecystectomy 2019 History of colonoscopy 2007 Family History Family History Father Diabetes mellitus Mother Family history of polycystic kidney disease Sibling Family history of polycystic kidney disease Other Diabetes mellitus Social History Social History Smoking packs per day: 1 Smoking cigarettes per day: 20.0 Years smoked: 35 Smoking pack-years: 35.00 Smoking status: Former smoker Tobacco type: cigarettes Smoking end date: 10/26/94 Alcohol intake: current Drinks per week: 3 Substance use: never Substance use type: does not use Living arrangements: with family Occupation/Education: retired Gender identity (if verbalized by the patient): Female Spiritual care concerns: No Anes - Eval Final PreProcedure Day of Procedure 07/11/25 11:08 Patient weight: obese Lungs: normal air movement Airway: Mallampati scale class II Neurological: alert and oriented Last oral intake: >/= 8 hours ASA classification: III Emergent: no Anesthetic plan: proceed Anesthesia type and monitoring: general GIVS and standard monitoring Results Review: All pre-operative results and documents have been reviewed as part of the pre-operative evaluation. Hyperlipidemia, hx of carotid disease on ASA, hx breast ca. Stress test 2023 w LVEF 50-63%, old fixed perfusion defect. Informed Consent: The patient's anesthetic plan and its attendant risks and benefits were discussed with the patient/family/POA. Questions were solicited and answers provided to the satisfaction of the patient/family/POA.
--- NOTE | 2025-07-11 11:48 | PM.IMHP ---
H&P: HPI History of Present Illness Date/Time: 07/11/25 11:48 Chief Complaint: screening for colorectal cancer Narrative: this is a 80-year-old woman who presents for colonoscopy. Her last colonoscopy was 10 years ago and she thinks was normal. She denies any hematochezia or melena. She denies any family history colon cancer. Review of Systems Review of Systems: All systems reviewed & are unremarkable except as noted in HPI and below Constitutional: Constitutional: Denies chills, Denies fever(s), Denies headache(s) and Denies weight loss Eyes: Eyes: Denies change in vision ENT: Denies dizziness, Denies headache(s), Denies neck mass and Denies throat swelling Cardiovascular: Cardiovascular: Denies chest pain, Denies lightheadedness and Denies dyspnea Respiratory: Respiratory: Denies cough, Denies dyspnea and Denies wheezing Gastrointestinal: Gastrointestinal: Denies abdominal pain, Denies change in bowel habits, Denies nausea and Denies vomiting Genitourinary: Genitourinary: Denies hematuria and Denies dysuria Musculoskeletal: Musculoskeletal: Reports as per HPI Integumentary/Breasts: Skin/Breast: Reports as per HPI Neurologic: Denies dizziness and Denies headache(s) Allergic/Immunologic: Allergic/Immunologic: Denies throat swelling and Denies wheezing PMF Past Medical History Medical History Cancer BREAST CA Hypercholesterolemia Heart murmur Neoplasm of skin Peptic ulcer Dysarthria Sleep apnea Hypertension Breast cancer Surgical History Surgical History History of inguinal hernia repair right inguinal hernia, open inguinal hernia repair with mesh 04/16/20 History of left mastectomy 2006 History of tubal ligation 2006 History of laparoscopic cholecystectomy 2019 History of colonoscopy 2007 Family History Family History Father Diabetes mellitus Mother Family history of polycystic kidney disease Sibling Family history of polycystic kidney disease Other Diabetes mellitus Social History Social History Smoking packs per day: 1 Smoking cigarettes per day: 20.0 Years smoked: 35 Smoking pack-years: 35.00 Smoking status: Former smoker Tobacco type: cigarettes Smoking end date: 10/26/94 Alcohol intake: current Drinks per week: 3 Substance use: never Substance use type: does not use Living arrangements: with family Occupation/Education: retired Gender identity (if verbalized by the patient): Female Spiritual care concerns: No Meds Home Medications and Allergies Home Medications ?Medication ?Instructions ?Recorded ?Confirmed ?Type aspirin 81 mg tablet,delayed 81 mg PO DAILY 03/14/20 07/11/25 History release (Adult Aspirin Regimen) carvedilol 3.125 mg tablet 3.125 mg PO Q12H 03/14/20 05/23/25 History atorvastatin 10 mg tablet 10 mg PO DAILY 04/09/20 07/11/25 History dapagliflozin propanediol 10 mg 10 mg PO DAILY 11/08/24 07/11/25 History tablet (Farxiga) spironolactone 25 mg tablet 25 mg PO DAILY 11/08/24 07/11/25 History diphenhydramine 25 2 tablet PO HS PRN pain 12/02/24 06/27/25 History mg-acetaminophen 500 mg tablet (Acetaminophen PM) metoprolol succinate 25 mg 25 mg PO DAILY 12/02/24 07/11/25 History tablet,extended release 24 hr sacubitril 24 mg-valsartan 26 mg 1 tablet PO BID 12/02/24 07/11/25 History tablet (Entresto) hydrocodone 5 mg-acetaminophen 325 1 tablet PO Q12H PRN pain #20 tabs 12/21/24 06/27/25 Rx mg tablet Allergies Allergy/AdvReac Type Severity Reaction Status Date / Time lisinopril Allergy Unknown Cough Verified 07/11/25 10:30 Vital Signs Vital Signs - 24 hr 07/11/25 10:32 Temperature 97.6 F Pulse Rate 72 Respiratory Rate 17 Blood Pressure 143/78 H Pulse Oximetry 97 Oxygen Delivery Room Air Exam Const: General: no acute distress and alert Orientation/consciousness: patient oriented x3 HENMT: Head: normocephalic and atraumatic Ears: hearing grossly normal bilaterally Face/Nose/Sinus: Normal nares present Mouth: Yes Normal oral and palatal mucosa present Eyes: Periorbital: periorbital findings normal Sclera: sclerae normal EOM: EOMs intact bilaterally Neck: Neck: normal visual inspection, no lymphadenopathy and trachea midline Chest: Chest palpation & inspection: normal inspection of the chest Resp: Effort & Inspection: normal respiratory effort Auscultation: clear to auscultation bilaterally Cardio: Jugular venous distension: no JVD Rate: regular rate Rhythm: regular rhythm Heart sounds: S1 normal heart sound present and S2 normal heart sound present Peripheral pulses: Peripheral pulses 2+ throughout GI: Inspection: normal to inspection GI Palp: Yes Soft to palpation, No Tenderness to palpation present (GI), No Guarding due to palpation present (GI) and No Rebound tenderness present Percussion: Yes normal to percussion Auscultation: normal bowel sounds : General: Yes no CVA tenderness Back/Spine/Pelvis: Back: no CVA tenderness Neuro: General: patient oriented x3, no focal motor deficits and CN's II-XI intact bilaterally Cognition (Neuro): normal cognition Speech: normal speech Motor exam (neuro): 5/5 motor strength present throughout Extrem: General: capillary refill normal and no clubbing, cyanosis or edema Assessment and Plan Assessment and plan (1) Screening for colorectal cancer: Code(s): Z12.11 - Encounter for screening for malignant neoplasm of colon; Z12.12 - Encounter for screening for malignant neoplasm of rectum Status: Acute Assessment and Plan: I have recommended colonoscopy. I have discussed the procedure, risks, benefits, and alternatives. Questions were answered. Patient is agreeable to proceed.
--- NOTE | 2025-07-11 12:16 | S_PTH ---
PATIENT: Joanna Freitas LOC: [facility] Key#:[id number] AGE/SX: 80/F ROOM: RE07/11/[address]: Robert Rmaos DO : 1945 BED: DIS: 07/11/2025 SPEC #: [id number] RECD: 07/11/25 13:12 STATUS: JEZ RERobert #: [id number] BRITNEY: 07/11/25 12:[address]: Robert Ramos DEPT: [facility] Surgical RECD BY: Kylee Byrd MLT, ([facility]) ENTERED: 07/11/25 13:12 SP TYPE: Surgical OTHR DR: Von Silverio MD Tissues: A - Colon Polypectomy Procedures: Hematoxylin and Eosin Stain Gross and Microscopic Level 4
[2025-07-11 12:19] VITALS: BP 96/35; PULSE 78; RESP 24; O2SAT 98
[2025-07-11 12:29] VITALS: BP 112/60; PULSE 79; RESP 18; O2SAT 99
[2025-07-11 12:39] VITALS: BP 116/47; PULSE 77; RESP 24; O2SAT 98
== END 2025-07-11 12:51 | disposition home or self-care (01) ==
PROVIDERS: PCP Internal Medicine; Visit Provider Surgery
PROC: 0DJD8ZZ Inspection of Lower Intestinal Tract, Via Natural or Artificial Opening Endoscopic (ICD-10-PCS; CPT 45378; principal; 2025-07-11 11:30)
DX: Z12.11 Encounter for screening for malignant neoplasm of colon (principal); D12.5 Benign neoplasm of sigmoid colon; K57.30 Diverticulosis of large intestine without perforation or abscess without bleeding; I10 Essential (primary) hypertension; E78.00 Pure hypercholesterolemia, unspecified; R01.1 Cardiac murmur, unspecified; G47.30 Sleep apnea, unspecified; E66.9 Obesity, unspecified; Z68.30 Body mass index [BMI] 30.0-30.9, adult; Z79.82 Long term (current) use of aspirin; Z79.84 Long term (current) use of oral hypoglycemic drugs; Z79.891 Long term (current) use of opiate analgesic; Z98.890 Other specified postprocedural states; Z90.12 Acquired absence of left breast and nipple; Z98.51 Tubal ligation status; Z90.49 Acquired absence of other specified parts of digestive tract; Z87.891 Personal history of nicotine dependence; Z87.11 Personal history of peptic ulcer disease; Z85.3 Personal history of malignant neoplasm of breast; Z86.79 Personal history of other diseases of the circulatory system
CPT/HCPCS: 45380; 88305; J2003; J2704; J7120

== ENCOUNTER 2025-08-11 08:47 | Outpatient (CLI) | payer MEDICARE, SELFPAY ==
--- NOTE | 2025-08-11 08:53 | ECG_ITS ---
Test Date: 2025-08-11 09:01:32 Measurements Intervals [place] Rate: 73 P: 64 MD: 172 QRS: 5 QRSD: 126 T: 96 QT: 402 QTc: 445 Interpretive Statements SINUS RHYTHM LEFT BUNDLE BRANCH BLOCK ABNORMAL ECG No previous ECG available for comparison Electronically Signed On 08-11-2025 10:12:34 CDT by Simon Rain D.O.
== END 2025-08-11 08:48 | disposition home or self-care (01) ==
PROVIDERS: PCP Internal Medicine; Visit Provider Orthopaedic Surgery
DX: R53.83 Other fatigue (principal); I10 Essential (primary) hypertension; E78.00 Pure hypercholesterolemia, unspecified; M17.12 Unilateral primary osteoarthritis, left knee; I44.7 Left bundle-branch block, unspecified; R94.31 Abnormal electrocardiogram [ECG] [EKG]
CPT/HCPCS: 93005